=== PATIENT | female | born 1965 | race Caucasian/White ===

== ENCOUNTER 2017-08-20 07:38 | Emergency (ER) | payer MEDICARE, BC ==
[2017-08-20] MEDS ORDERED: Ondansetron 4 MG Tab.DIS PO ONE (08:12)
[2017-08-20] MEDS ORDERED: Acetaminophen/HYDROcodone 325-5 MG Tab PO ONE (08:22)
--- NOTE | 2017-08-20 08:22 | EDM.PDOC ---
ED HPI GENERAL MEDICAL PROBLEM - General Chief Complaint: Gastrointestinal Problem Stated Complaint: ABD PAIN/VOMITING Time Seen by Provider: 08/20/17 08:10 Source of Information: Reports: Patient, Old Records, RN History Limitations: Reports: No Limitations - History of Present Illness INITIAL COMMENTS - FREE TEXT/NARRATIVE: 51 yo female with MS presents with diarrhea mostly, but also some mild nausea and a couple episodes of vomiting over the past several days. No known exposures. Is on cephalexin daily. No fever. No bloody stools or emesis. Lives alone and is getting by with the help of some friends. Has a pHx also of C.diff. Fell off the toilet before the onset of her current sx's and injured her lower left, anterior ribs. Onset: Gradual Onset Date: 08/16/17 Duration: Day(s):, Constant Location: Reports: Abdomen Quality: Reports: Other (crampy) Severity: Moderate Improves with: Reports: None Worsens with: Reports: Eating Context: Reports: Other (uncertain) Associated Symptoms: Reports: Nausea/Vomiting. 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) left;abd Pain Score (Numeric/FACES): 8 - Related Data Allergies Allergy/AdvReac Type Severity Reaction Status Date / Time Penicillins Allergy Severe Anaphylactic Verified 08/20/17 09:09 Shock diphenhydramine AdvReac Anxiety Verified 08/20/17 07:53 [From Benadryl] Home Meds: Home Meds DULoxetine [Cymbalta] 120 tab PO DAILY 03/01/14 [History] Acetaminophen [Tylenol Extra Strength] 2 tab PO Q6H PRN 01/25/15 [History] Baclofen 20 tab PO BID 01/25/15 [History] Calcium Carbonate 1,000 mg PO DAILY 01/25/15 [History] Cholecalciferol (Vitamin D3) [Vitamin D3] 5,000 units PO DAILY 01/25/15 [History ] [place]-3 Fatty Acids/Fish Oil [Hm Fish Oil 1,200 mg Softgel] 1 cap PO DAILY 01/25 [History] Pregabalin [Lyrica] 200 mg PO BID 01/25/15 [History] Alendronate [Fosamax] 70 mg PO Q7D@0600 03/24/17 [History] Biotin 300 mcg PO DAILY 03/24/17 [History] Brexpiprazole [Rexulti] 1 mg PO DAILY 03/24/17 [History] Fluticasone Propionate [Flonase] 2 spray NS DAILY 03/24/17 [History] Ibuprofen 600 mg PO Q6H PRN 03/24/17 [History] Ipratropium [Atrovent 0.03% Nasal [place]] 2 spray MOUSTAPHA BID 03/24/17 [History] Ketorolac [Toradol] 10 mg PO Q6H PRN 03/24/17 [History] Lisdexamfetamine [Vyvanse] 70 mg PO DAILY 03/24/17 [History] Loratadine [Claritin] 10 mg PO DAILY 03/24/17 [History] Phenazopyridine HCl [Pyridium] 200 mg PO TID PRN 03/24/17 [History] QUEtiapine Fumarate [Seroquel] 0.5 - 2 tab PO BEDTIME PRN 03/24/17 [History] Cephalexin [Cephalexin] 500 mg PO ASDIRECTED 08/20/17 [History] Estradiol [Estradiol] 0.5 mg PO DAILY 08/20/17 [History] Hydrocodone/Acetaminophen [Vicodin 5-300 mg Tablet] 1 each PO Q4H PRN #20 tablet 08/20/17 [Rx] [place] Carbonate [[place] Carbonate] 150 mg PO BEDTIME 08/20/17 [History] Nortriptyline 25 mg PO BEDTIME 08/20/17 [History] Ondansetron [Zofran ODT] 4 mg PO Q6H PRN #7 tab.dis 08/20/17 [Rx] Past Medical History HEENT History: Reports: Impaired Vision Cardiovascular History: Reports: None Respiratory History: Reports: None Gastrointestinal History: Reports: None Genitourinary History: Reports: Neurogenic Bladder, Urinary Incontinence 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: Dysfunctional Uterine Bleeding Musculoskeletal History: Reports: Back Pain, Chronic, Fracture, Other (See Below ) Other Musculoskeletal History: MS, herniated disc Neurological History: Reports: MS Psychiatric History: Reports: Addiction, Depression, Psych Hospitalization(s) Endocrine/Metabolic History: Reports: None Hematologic History: Reports: None Immunologic History: Reports: None Oncologic (Cancer) History: Reports: None Other Dermatologic History: skin graft - Infectious Disease History Infectious Disease History: Reports: C-Difficile, Chicken Pox - Past Surgical History Head Surgeries/Procedures: Reports: None Cardiovascular Surgical History: Reports: None GI Surgical History: Reports: Other (See Below) Endocrine Surgical History: Reports: None Musculoskeletal Surgical History: Reports: Arthroscopic Knee Oncologic Surgical History: Reports: None Social & Family History - Family History Family Medical History: Noncontributory - Tobacco Use Smoking Status *Q: Never Smoker Second Hand Smoke Exposure: No - Caffeine Use Caffeine Use: Reports: Coffee - Alcohol Use Days Per Week of Alcohol Use: 0 - Recreational Drug Use Recreational Drug Use: No ED ROS GENERAL - Review of Systems Review Of Systems: See Below Constitutional: Reports: No Symptoms HEENT: Reports: No Symptoms Respiratory: Reports: Other (Rib pain with breathing, coughing, or changing position.) Cardiovascular: Reports: No Symptoms Endocrine: Reports: No Symptoms GI/Abdominal: Reports: Abdominal Pain (cramping), Diarrhea, Decreased Appetite, Nausea, Vomiting. Denies: Black Stool, Bloody Stool, Constipation, Flatus, Hematemesis, Hematochezia, Melena : Reports: No Symptoms Musculoskeletal: Reports: Other (Rib pain L ant/lower ribs) Skin: Reports: No Symptoms Neurological: Reports: Other (Has MS) Psychiatric: Reports: No Symptoms ED EXAM, GI/ABD - Physical Exam Exam: See Below Exam Limited By: No Limitations General Appearance: Alert, WD/WN, No Apparent Distress Eyes: Bilateral: Normal Appearance Ears: Normal External Exam, Normal Canal, Hearing Grossly Normal, Normal TMs Nose: Normal Inspection, Normal Mucosa, No Blood Throat/Mouth: Normal Inspection, Normal Lips, Normal Oropharynx, Normal Voice, No Airway Compromise Head: Atraumatic, Normocephalic Neck: Normal Inspection, Supple, Non-Tender Respiratory/Chest: No Respiratory Distress, Lungs Clear, Normal Breath Sounds, No Accessory Muscle Use, Other (Rib tenderness under the L breast, no crepitus) Cardiovascular: Regular Rate, Rhythm, No Edema GI/Abdominal Exam: Soft, Non-Tender, No Distention, Abnormal Bowel Sounds ( increased) Back Exam: Normal Inspection. No: CVA Tenderness (R), CVA Tenderness (L) Extremities: Normal Inspection, Normal Range of Motion, Non-Tender, No Pedal Edema Neurological: Alert, Oriented, CN II-XII Intact, Normal Cognition Psychiatric: Normal Affect, Normal Mood Skin Exam: Warm, Dry, Intact, Normal Color, No Rash Lymphatic: No Adenopathy Course - Vital Signs Last Recorded V/S: Last Vital Signs Temp 36 C 08/20/17 08:05 Pulse 70 08/20/17 09:44 Resp 16 08/20/17 09:44 BP 121/52 L 08/20/17 09:44 Pulse Ox 99 08/20/17 09:44 Orthostatic Blood Pressure [ 104/81 Standing] Orthostatic Blood Pressure [ 112/60 Sitting] Orthostatic Blood Pressure [ 118/61 Supine] - Orders/Labs/Meds Orders: Active Orders 24 hr Category Date Time Status Orthostatic Vital Signs [RC] ASDIRECTED Care 08/20/17 08:12 Active Magnesium Sulfate/Water [Magnesium Sulfate 2 GM in Med 08/20/17 09:17 Active Water 50 ML] 2 gm Premix Bag 1 bag IV ONETIME NS + KCl 20mEq/L [Normal Saline with 20 mEq KCl] 1,000 Med 08/20/17 09:00 Active ml IV ASDIRECTED Medication Orders Potassium Chloride/Sodium Chloride (Normal Saline With 20 Meq Kcl) 1,000 mls @ 1,000 mls/hr IV ASDIRECTED TORSTEN Last Admin: 08/20/17 09:13 Dose: 1,000 mls/hr Magnesium Sulfate 2 gm/ Premix 50 mls @ 12.5 mls/hr IV ONETIME ONE Stop: 08/20/17 13:16 Last Admin: 08/20/17 09:35 Dose: 12.5 mls/hr Labs: Laboratory Tests 08/20/17 08/20/17 Range/Units 08:24 08:54 Sodium 141 (140-148) mmol/L Potassium 3.3 L (3.6-5.2) mmol/L Chloride 105 (100-108) mmol/L Carbon Dioxide 26 (21-32) mmol/L Anion Gap 13.3 (5.0-14.0) mmol/L BUN 20 H (7-18) mg/dL Creatinine 1.2 H (0.6-1.0) mg/dL Est Cr Clr Drug Dosing 53.94 mL/min Estimated GFR (MDRD) 47 L (>60) Glucose 98 (74-106) mg/dL Calcium 9.2 (8.5-10.1) mg/dL Magnesium 1.4 L (1.8-2.4) mg/dL Meds: Medications Generic Name Dose Route Start Last Admin Trade Name Freq PRN Reason Stop Dose Admin Potassium Chloride/Sodium Chloride 1,000 mls @ 1,000 mls/hr 08/20/17 09:00 09:13 Normal Saline With 20 Meq Kcl IV 1,000 mls/hr ASDIRECTED TORSTEN Administration Magnesium Sulfate 2 gm/ Premix 50 mls @ 12.5 mls/hr 08/20/17 09:17 08/20/17 09:35 IV 08/20/17 13:16 12.5 mls/hr ONETIME ONE Administration Discontinued Medications Generic Name Dose Route Start Last Admin Trade Name Misbahq PRN Reason Stop Dose Admin Hydrocodone Bitart/Acetaminophen 1 tab 08/20/17 08:22 08/20/17 08:34 [place] 325-5 Mg PO 08/20/17 08:23 1 tab ONETIME ONE Administration Diphenoxylate HCl/Atropine 2 tab 08/20/17 09:34 08/20/17 09:43 [place] 0.025-2.5 Mg PO 08/20/17 09:35 2 tab ONETIME ONE Administration Ondansetron HCl 4 mg 08/20/17 08:12 08/20/17 08:34 Zofran Odt PO 08/20/17 08:13 4 mg ONETIME ONE Administration Potassium Chloride 40 meq 08/20/17 08:55 08/20/17 09:13 Klor-Con M20 PO 08/20/17 08:56 40 meq ONETIME ONE Administration Departure - Departure Time of Disposition: 11:45 Disposition: Home, Self-Care 01 Condition: Good Clinical Impression: Rib pain on left side, Nausea vomiting and diarrhea, Hypokalemia, Hypomagnesemia - Discharge Information Prescriptions: Hydrocodone/Acetaminophen [Vicodin 5-300 mg Tablet] 1 each PO Q4H PRN #20 tablet PRN Reason: Pain Ondansetron [Zofran ODT] 4 mg PO Q6H PRN #7 tab.dis PRN Reason: Nausea Referrals: John Kerr MD [Primary Care Provider] - Forms: ED Department Discharge Additional Instructions: Take Zofran every 6-8 hrs as needed for nausea. Take loperamide per package instructions as needed for diarrhea control. Follow a BRAT diet and clear liquids, ezequiel bananas as they are a good source of both potassium and magnesium. Recheck with your provider if not improving, return here if your provider cannot see you. Use [place] as needed for rib pain that is not controlled by acetaminophen alone. If you take the [place] it must substitute for acetaminophen, don't take both concurrently. - My Orders Last 24 Hours: My Active Orders 08/20/17 08:12 Orthostatic Vital Signs [RC] ASDIRECTED 08/20/17 09:00 NS + KCl 20mEq/L [Normal Saline with 20 mEq KCl] 1,000 ml IV ASDIRECTED 08/20/17 09:17 Magnesium Sulfate/Water [Magnesium Sulfate 2 GM in Water 50 ML] 2 gm Premix Bag 1 bag IV ONETIME - Assessment/Plan Last 24 Hours: My Active Orders 08/20/17 08:12 Orthostatic Vital Signs [RC] ASDIRECTED 08/20/17 09:00 NS + KCl 20mEq/L [Normal Saline with 20 mEq KCl] 1,000 ml IV ASDIRECTED 08/20/17 09:17 Magnesium Sulfate/Water [Magnesium Sulfate 2 GM in Water 50 ML] 2 gm Premix Bag 1 bag IV ONETIME
[2017-08-20] MEDS ORDERED: Potassium Chloride 20 MEQ Tab.ER PO ONE (08:55)
[2017-08-20] MEDS ORDERED: NS + KCl 20mEq/L 1,000 ML IV SCH (09:00)
[2017-08-20] MEDS ORDERED: Magnesium Sulfate/Water 2 GM in Premix Bag 1 BAG IV ONE (09:17)
[2017-08-20] MEDS ORDERED: Atropine/Diphenoxylate 0.025-2.5 MG Tab PO ONE (09:34)
[2017-08-20 09:44] VITALS: BP 121/52
== END 2017-08-20 11:33 | disposition home or self-care (01) ==
LOC: JP.ED 07:38
DX: E83.42 Hypomagnesemia (principal); E87.6 Hypokalemia; R07.81 Pleurodynia; Z88.0 Allergy status to penicillin; Z88.8 Allergy status to other drugs, medicaments and biological substances; Z79.899 Other long term (current) drug therapy
CPT/HCPCS: 36415; 80048; 83735; 87493; 96365; 96366; 99284; A9270; J3475; J3480

== ENCOUNTER 2017-08-21 16:18 | Observation (INO) | payer MEDICARE, BC ==
[2017-08-21] MEDS ORDERED: Sodium Chloride 0.9% 10 ML Syringe FLUSH PRN ×2 (17:04→20:39)
--- NOTE | 2017-08-21 17:04 | EDM.PDOC ---
ED HPI GENERAL MEDICAL PROBLEM - General Chief Complaint: Gastrointestinal Problem Stated Complaint: LIGHTHEADED/DIARRHEA SINCE THURSDAY Time Seen by Provider: 08/21/17 16:45 Source of Information: Reports: Patient, Family History Limitations: Reports: No Limitations - History of Present Illness INITIAL COMMENTS - FREE TEXT/NARRATIVE: Yady presents to the emergency room today with complaints of dizziness, continued diarrhea and generalized weakness. She reports she has had diarrhea with worsening since this past Thursday. She was in the emergency room yesterday , was given IV fluids, IV potassium and IV magnesium as well as ondansetron. She reports she has been drinking water, gatorade, tea and popsicles. Yady states anything she eats or drinks goes right through her. She states she feels dizzy with all activity today. She reports taking medication as directed. She denies nausea, fever and chills. Left Upper Abdominal Pain Score (Numeric/FACES): 6 - Related Data Allergies Allergy/AdvReac Type Severity Reaction Status Date / Time Penicillins Allergy Severe Anaphylactic Verified 08/20/17 09:09 Shock diphenhydramine AdvReac Anxiety Verified 08/20/17 07:53 [From Benadryl] Home Meds: Home Meds DULoxetine [Cymbalta] 120 tab PO DAILY 03/01/14 [History] Acetaminophen [Tylenol Extra Strength] 2 tab PO Q6H PRN 01/25/15 [History] Baclofen 20 tab PO BID 01/25/15 [History] Calcium Carbonate 1,000 mg PO DAILY 01/25/15 [History] Cholecalciferol (Vitamin D3) [Vitamin D3] 5,000 units PO DAILY 01/25/15 [History ] [place]-3 Fatty Acids/Fish Oil [Hm Fish Oil 1,200 mg Softgel] 1 cap PO DAILY 01/25 [History] Pregabalin [Lyrica] 200 mg PO BID 01/25/15 [History] Alendronate [Fosamax] 70 mg PO Q7D@0600 03/24/17 [History] Biotin 300 mcg PO DAILY 03/24/17 [History] Brexpiprazole [Rexulti] 1 mg PO DAILY 03/24/17 [History] Fluticasone Propionate [Flonase] 2 spray NS DAILY 03/24/17 [History] Ibuprofen 600 mg PO Q6H PRN 03/24/17 [History] Ipratropium [Atrovent 0.03% Nasal [place]] 2 spray MOUSTAPHA BID 03/24/17 [History] Ketorolac [Toradol] 10 mg PO Q6H PRN 03/24/17 [History] Lisdexamfetamine [Vyvanse] 70 mg PO DAILY 03/24/17 [History] Loratadine [Claritin] 10 mg PO DAILY 03/24/17 [History] Phenazopyridine HCl [Pyridium] 200 mg PO TID PRN 03/24/17 [History] QUEtiapine Fumarate [Seroquel] 0.5 - 2 tab PO BEDTIME PRN 03/24/17 [History] Cephalexin [Cephalexin] 500 mg PO ASDIRECTED 08/20/17 [History] Estradiol [Estradiol] 0.5 mg PO DAILY 08/20/17 [History] Hydrocodone/Acetaminophen [Vicodin 5-300 mg Tablet] 1 each PO Q4H PRN #20 tablet 08/20/17 [Rx] [place] Carbonate [[place] Carbonate] 150 mg PO BEDTIME 08/20/17 [History] Nortriptyline 25 mg PO BEDTIME 08/20/17 [History] Ondansetron [Zofran ODT] 4 mg PO Q6H PRN #7 tab.dis 08/20/17 [Rx] Past Medical History HEENT History: Reports: Impaired Vision Cardiovascular History: Reports: None Respiratory History: Reports: None Gastrointestinal History: Reports: None Genitourinary History: Reports: Neurogenic Bladder, Urinary Incontinence 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: Dysfunctional 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 Bleeding Musculoskeletal History: Reports: Back Pain, Chronic, Fracture, Other (See Below ) Other Musculoskeletal History: MS, herniated disc Neurological History: Reports: MS Psychiatric History: Reports: Addiction, Depression, Psych Hospitalization(s) Endocrine/Metabolic History: Reports: None Hematologic History: Reports: None Immunologic History: Reports: None Oncologic (Cancer) History: Reports: None Other Dermatologic History: skin graft - Infectious Disease History Infectious Disease History: Reports: Chicken Pox - Past Surgical History Head Surgeries/Procedures: Reports: None Cardiovascular Surgical History: Reports: None GI Surgical History: Reports: Other (See Below) Endocrine Surgical History: Reports: None Musculoskeletal Surgical History: Reports: Arthroscopic Knee Oncologic Surgical History: Reports: None Social & Family History - Family History Family Medical History: Noncontributory - Tobacco Use Smoking Status *Q: Never Smoker Second Hand Smoke Exposure: No - Caffeine Use Caffeine Use: Reports: Coffee - Alcohol Use Days Per Week of Alcohol Use: 0 - Recreational Drug Use Recreational Drug Use: No ED ROS GENERAL - Review of Systems Review Of Systems: See Below Constitutional: Reports: Malaise, Weakness. Denies: Fever, Chills HEENT: Reports: No Symptoms Respiratory: Denies: Shortness of Breath, Cough, Sputum, Hemoptysis Cardiovascular: Reports: Lightheadedness. Denies: Chest Pain, Blood Pressure Problem, Dyspnea on Exertion, Edema, Orthopnea, Palpitations, PND, Syncope Endocrine: Reports: No Symptoms GI/Abdominal: Reports: Diarrhea, Decreased Appetite. Denies: Abdominal Pain, Black Stool, Bloody Stool, Constipation, Difficulty Swallowing, Distension, Hematemesis, Nausea, Vomiting : Reports: No Symptoms Musculoskeletal: Reports: Other (Pain to left rib cage, rib fracture. ) Skin: Reports: Pallor, Dryness. Denies: Diaphoresis, Bruising, Pruritis, Rash, Erythema Neurological: Reports: Dizziness, Pre-Existing Deficit, Other (Patient suffers from MS). Denies: Confusion, Headache, Numbness, Syncope, Tingling, Weakness Psychiatric: Reports: No Symptoms Hematologic/Lymphatic: Reports: No Symptoms Immunologic: Reports: No Symptoms ED EXAM, GI/ABD - Physical Exam Exam: See Below Text/Narrative:: Yady presents today with complaints of nausea, dehydration, unsteadiness due to enteritis. She also has a history of MS and left sided weakness. Exam Limited By: No Limitations General Appearance: Alert, Moderate Distress Eyes: Bilateral: Normal Appearance, EOMI Ears: Normal External Exam, Normal Canal, Hearing Grossly Normal, Normal TMs Nose: Normal Inspection, Normal Mucosa, No Blood Throat/Mouth: Normal Inspection, Normal Lips, Normal Gums, Normal Voice, No Airway Compromise, Other (dry mucus membranes) Head: Atraumatic, Normocephalic Neck: Normal Inspection, Supple, Non-Tender, Full Range of Motion. No: Lymphadenopathy (R), Lymphadenopathy (L) Respiratory/Chest: No Respiratory Distress, Lungs Clear, Normal Breath Sounds, No Accessory Muscle Use, Other (Tenderness to left ribs due to rib fracture secondary to fall earlier this week. ) Cardiovascular: Normal Peripheral Pulses, Regular Rate, Rhythm, No Edema, No Murmur GI/Abdominal Exam: Soft, Distended, Other (Hyperactive bowel sounds, generalized tenderness. ). No: Guarding, Rigid, Rebound Back Exam: Normal Inspection, Full Range of Motion. No: CVA Tenderness (R), CVA Tenderness (L) Extremities: Normal Inspection, Normal Range of Motion, Non-Tender, No Pedal Edema, Normal Capillary Refill Neurological: Alert, Oriented, CN II-XII Intact, Normal Cognition, No Motor/ Sensory Deficits Psychiatric: Normal Affect, Normal Mood Skin Exam: Warm, Dry, Intact, No Rash, Pallor Lymphatic: No Adenopathy Course - Vital Signs Last Recorded V/S: Last Vital Signs Temp 36.3 C 08/21/17 16:37 Pulse 95 08/21/17 16:37 Resp 18 08/21/17 16:37 BP 125/56 L 08/21/17 16:37 Pulse Ox 97 08/21/17 16:37 - Orders/Labs/Meds Orders: Medication Orders Acetaminophen (Tylenol) 650 mg PO Q4H PRN PRN Reason: Pain (Mild 1-3)/fever Baclofen (Lioresal) mg PO BID [facility] Non-Formulary Medication (Biotin [Biotin]) 300 mcg PO DAILY [facility] Non-Formulary Medication (Brexpiprazole [Rexulti]) 1 mg PO DAILY [facility] Labs: Laboratory Tests 08/21/17 08/21/17 08/21/17 Range/Units 17:18 17:18 17:18 WBC 6.6 (4.5-11.0) K/uL RBC 4.09 (3.30-5.50) M/uL Hgb 12.5 (12.0-15.0) g/dL Hct 37.8 (36.0-48.0) % MCV 92 (80-98) fL MCH 31 (27-31) pg MCHC 33 (32-36) % Plt Count 337 (150-400) K/uL Neut % (Auto) 76 H (36-66) % Lymph % (Auto) 14 L (24-44) % [place] % (Auto) 9 H (2-6) % Eos % (Auto) 1 L (2-4) % Baso % (Auto) 1 (0-1) % Sodium 141 (140-148) mmol/L Potassium 3.6 (3.6-5.2) mmol/L Chloride 108 (100-108) mmol/L Carbon Dioxide 25 (21-32) mmol/L Anion Gap 8.2 (5.0-14.0) mmol/L BUN 10 (7-18) mg/dL Creatinine 1.0 (0.6-1.0) mg/dL Est Cr Clr Drug Dosing 64.72 mL/min Estimated GFR (MDRD) 58 L (>60) Glucose 101 (74-106) mg/dL Calcium 8.4 L (8.5-10.1) mg/dL Magnesium 2.0 D (1.8-2.4) mg/dL Total Bilirubin 0.4 D (0.2-1.0) mg/dL AST 17 (15-37) U/L ALT 24 (12-78) U/L Alkaline Phosphatase 68 (46-116) U/L Total Protein 6.1 L (6.4-8.2) g/dL Albumin 3.1 L (3.4-5.0) g/dL Globulin 3.0 (2.3-3.5) g/dL Albumin/Globulin Ratio 1.0 L (1.2-2.2) Vitamin B12 3083 H (193-986) pg/ml Urine Color Urine Appearance Urine pH (4.5-8.0) Ur Specific [place] (1.008-1.030) Urine Protein (NEGATIVE) mg/dL Urine Glucose (UA) (NEGATIVE) mg/dL Urine Ketones (NEGATIVE) mg/dL Urine Occult Blood (NEGATIVE) Urine Nitrite (NEGATIVE) Urine Bilirubin (NEGATIVE) Urine Urobilinogen (NORMAL) mg/dL Ur Leukocyte Esterase (NEGATIVE) Urine RBC (0-5) Urine WBC (0-5) Ur Epithelial Cells Amorphous Sediment Urine Bacteria Urine Mucus 08/21/17 Range/Units 19:23 WBC (4.5-11.0) K/uL RBC (3.30-5.50) M/uL Hgb (12.0-15.0) g/dL Hct (36.0-48.0) % MCV (80-98) fL MCH (27-31) pg MCHC (32-36) % Plt Count (150-400) K/uL Neut % (Auto) (36-66) % Lymph % (Auto) (24-44) % [place] % (Auto) (2-6) % Eos % (Auto) (2-4) % Baso % (Auto) (0-1) % Sodium (140-148) mmol/L Potassium (3.6-5.2) mmol/L Chloride (100-108) mmol/L Carbon Dioxide (21-32) mmol/L Anion Gap (5.0-14.0) mmol/L BUN (7-18) mg/dL Creatinine (0.6-1.0) mg/dL Est Cr Clr Drug Dosing mL/min Estimated GFR (MDRD) (>60) Glucose (74-106) mg/dL Calcium (8.5-10.1) mg/dL Magnesium (1.8-2.4) mg/dL Total Bilirubin (0.2-1.0) mg/dL AST (15-37) U/L ALT (12-78) U/L Alkaline Phosphatase (46-116) U/L Total Protein (6.4-8.2) g/dL Albumin (3.4-5.0) g/dL Globulin (2.3-3.5) g/dL Albumin/Globulin Ratio (1.2-2.2) Vitamin B12 (193-986) pg/ml Urine Color Yellow Urine Appearance Clear Urine pH 5.0 (4.5-8.0) Ur Specific [place] 1.015 (1.008-1.030) Urine Protein Negative (NEGATIVE) mg/dL Urine Glucose (UA) Normal (NEGATIVE) mg/dL Urine Ketones Negative (NEGATIVE) mg/dL Urine Occult Blood Moderate (NEGATIVE) Urine Nitrite Negative (NEGATIVE) Urine Bilirubin Negative (NEGATIVE) Urine Urobilinogen Normal (NORMAL) mg/dL Ur Leukocyte Esterase Negative (NEGATIVE) Urine RBC 5-10 H (0-5) Urine WBC Not seen (0-5) Ur Epithelial Cells Few Amorphous Sediment Not seen Urine Bacteria Few Urine Mucus Not seen Meds: Medications Generic Name Dose Route Start Last Admin Trade Name Freq PRN Reason Stop Dose Admin Acetaminophen 650 mg 08/21/17 20:39 Tylenol PO Q4H PRN Pain (Mild 1-3)/fever Baclofen mg 08/21/17 21:00 Lioresal PO BID TORSTEN Non-Formulary Medication 300 mcg 08/22/17 09:00 Biotin [Biotin] PO DAILY TORST[facility] Non-Formulary Medication 1 mg 08/22/17 09:00 Brexpiprazole [Rexulti] PO DAILY TORSTEN Discontinued Medications Generic Name Dose Route Start Last Admin Trade Name Maria Teresa PRN Reason Stop Dose Admin Hydromorphone HCl 0.5 mg 08/21/17 19:44 08/21/17 19:53 Dilaudid IVPUSH 08/21/17 19:45 0.5 mg ONETIME ONE Administration Lactated Ringer's 1,000 mls @ 1,000 mls/hr 08/21/17 17:15 08/21/17 17:43 Ringers, Lactated IV 1,000 mls/hr ASDIRECTED TORSTEN Administration Lactated Ringer's 1,000 mls @ 999 mls/hr 08/21/17 19:07 08/21/17 19:09 Ringers, Lactated IV 08/21/17 20:07 999 mls/hr BOLUS ONE Administration Sodium Chloride 10 ml 08/21/17 17:04 08/21/17 17:43 Saline Flush FLUSH 10 ml ASDIRECTED PRN Administration Keep Vein Open - Re-Assessments/Exams Free Text/Narrative Re-Assessment/Exam: 08/21/17 18:57 Dr. Lee notified of patient status, lab work, history of MS, fall risk. Patient will be admitted. Dilaudid IV for rib pain. Departure - Departure Time of Disposition: 18:58 Disposition: Admitted As Inpatient 66 Clinical Impression: Gastritis, Diarrhea - Discharge Information
[2017-08-21] MEDS ORDERED: Lactated Ringers 1,000 ML IV SCH (17:15)
[2017-08-21] MEDS ORDERED: Lactated Ringers 1,000 ML IV ONE (19:07)
[2017-08-21] MEDS ORDERED: HYDROmorphone 0.5 MG/0.5 ML Syringe IVPUSH ONE (19:44)
--- NOTE | 2017-08-21 20:00 | PCM.HP ---
H&P History of Present Illness - General Date of Service: 08/21/17 Admit Problem/Dx: Admission Diagnosis/Problem Admission Diagnosis/Problem Enteritis Source of Information: Patient, Old Records, Provider, RN Notes Reviewed History Limitations: Reports: No Limitations - History of Present Illness Initial Comments - Free Text/Narative: Ms. Chowdhury is a 51-year-old woman who is admitted to observation status through the emergency department with nausea, vomiting, diarrhea, and dehydration secondary to enteritis. She first developed symptoms approximately 4 days ago and they have been persistent since that time. She did experience a fall earlier in the week injuring her left anterior chest wall. She denies any fever , chills, sweats, or significant abdominal pain. There is been no hematemesis, melena, or hematochezia. Stool for C. difficile was obtained yesterday and is negative. She has underlying MS with left-sided weakness, this associated with her dehydration has caused difficulty with ambulation and unsteadiness. Left Upper Abdominal Pain Score (Numeric/FACES): 6 - Related Data Allergies/Adverse Reactions: Allergies Allergy/AdvReac Type Severity Reaction Status Date / Time Penicillins Allergy Severe Anaphylactic Verified 08/20/17 09:09 Shock diphenhydramine AdvReac Anxiety Verified 08/20/17 07:53 [From Benadryl] Home Medications: Home Meds DULoxetine [Cymbalta] 120 tab PO DAILY 03/01/14 [History] Acetaminophen [Tylenol Extra Strength] 2 tab PO Q6H PRN 01/25/15 [History] Baclofen 20 tab PO BID 01/25/15 [History] Calcium Carbonate 1,000 mg PO DAILY 01/25/15 [History] Cholecalciferol (Vitamin D3) [Vitamin D3] 5,000 units PO DAILY 01/25/15 [History ] [place]-3 Fatty Acids/Fish Oil [Hm Fish Oil 1,200 mg Softgel] 1 cap PO DAILY 01/25 [History] Pregabalin [Lyrica] 200 mg PO BID 01/25/15 [History] Alendronate [Fosamax] 70 mg PO Q7D@0600 03/24/17 [History] Biotin 300 mcg PO DAILY 03/24/17 [History] Brexpiprazole [Rexulti] 1 mg PO DAILY 03/24/17 [History] Fluticasone Propionate [Flonase] 2 spray NS DAILY 03/24/17 [History] Ibuprofen 600 mg PO Q6H PRN 03/24/17 [History] Ipratropium [Atrovent 0.03% Nasal [place]] 2 spray MOUSTAPHA BID 03/24/17 [History] Ketorolac [Toradol] 10 mg PO Q6H PRN 03/24/17 [History] Lisdexamfetamine [Vyvanse] 70 mg PO DAILY 03/24/17 [History] Loratadine [Claritin] 10 mg PO DAILY 03/24/17 [History] Phenazopyridine HCl [Pyridium] 200 mg PO TID PRN 03/24/17 [History] QUEtiapine Fumarate [Seroquel] 0.5 - 2 tab PO BEDTIME PRN 03/24/17 [History] Cephalexin [Cephalexin] 500 mg PO ASDIRECTED 08/20/17 [History] Estradiol [Estradiol] 0.5 mg PO DAILY 08/20/17 [History] Hydrocodone/Acetaminophen [Vicodin 5-300 mg Tablet] 1 each PO Q4H PRN #20 tablet 08/20/17 [Rx] [place] Carbonate [[place] Carbonate] 150 mg PO BEDTIME 08/20/17 [History] Nortriptyline 25 mg PO BEDTIME 08/20/17 [History] Ondansetron [Zofran ODT] 4 mg PO Q6H PRN #7 tab.dis 08/20/17 [Rx] Past Medical History HEENT History: Reports: Impaired Vision Cardiovascular History: Reports: None Respiratory History: Reports: None Gastrointestinal History: Reports: None Genitourinary History: Reports: Neurogenic Bladder, Urinary Incontinence [employer] History: Reports: Dysfunctional Uterine Bleeding Musculoskeletal History: Reports: Back Pain, Chronic, Fracture, Other (See Below ) Other Musculoskeletal History: MS, herniated disc Neurological History: Reports: MS Psychiatric History: Reports: Addiction, Depression, Psych Hospitalization(s) Endocrine/Metabolic History: Reports: None Hematologic History: Reports: None Immunologic History: Reports: None Oncologic (Cancer) History: Reports: None Other Dermatologic History: skin graft - Infectious Disease History Infectious Disease History: Reports: Chicken Pox - Past Surgical History Head Surgeries/Procedures: Reports: None Cardiovascular Surgical History: Reports: None GI Surgical History: Reports: Other (See Below) Endocrine Surgical History: Reports: None Musculoskeletal Surgical History: Reports: Arthroscopic Knee Oncologic Surgical History: Reports: None Social & Family History - Family History Family Medical History: Noncontributory - Tobacco Use Smoking Status *Q: Never Smoker Second Hand Smoke Exposure: No - Caffeine Use Caffeine Use: Reports: Coffee - Alcohol Use Days Per Week of Alcohol Use: 0 - Recreational Drug Use Recreational Drug Use: No H&P Review of Systems - Review of Systems: Review Of Systems: See Below General: Reports: Weakness, Decreased Appetite. Denies: Fever, Chills, Diaphoresis HEENT: Reports: No Symptoms Pulmonary: Reports: No Symptoms Cardiovascular: Reports: No Symptoms Gastrointestinal: Reports: Anorexia, Diarrhea, Nausea, Vomiting. Denies: Abdominal Pain, Black Stool, Bloody Stool, Constipation, Difficulty Swallowing, Distension Genitourinary: Reports: No Symptoms Musculoskeletal: Reports: Other (Chest wall pain) Skin: Reports: No Symptoms Psychiatric: Reports: No Symptoms Neurological: Reports: Other (Left-sided weakness secondary to MS) Hematologic/Lymphatic: Reports: No Symptoms Immunologic: Reports: Pollen Allergy Exam - Exam Exam: See Below - Vital Signs Vital Signs: Last Vital Signs Temp 97.3 F 08/21/17 16:37 Pulse 95 08/21/17 16:37 Resp 18 08/21/17 16:37 BP 125/56 L 08/21/17 16:37 Pulse Ox 97 08/21/17 16:37 Weight: 156 lb 8.451 oz - Exam General: Alert, Oriented, Cooperative, Moderate Distress HEENT: Conjunctiva Clear, Hearing Intact, Normal Nasal Septum, Posterior Pharynx Clear, Pupils Equal. No: Mucosa Moist & [place] Neck: Supple, Trachea Midline, +2 Carotid Pulse wo Bruit Lungs: Clear to Auscultation, Normal Respiratory Effort Cardiovascular: Regular Rate, Regular Rhythm, Normal S1, Normal S2 GI/Abdominal Exam: Soft, Non-Tender, No Organomegaly, No Distention Back Exam: Normal Inspection, Full Range of Motion Extremities: Normal Inspection, Non-Tender, No Pedal Edema Skin: Warm, Dry, Intact Neurological: Cranial Nerves Intact, Normal Speech, Sensation Intact, Focal Deficit, Other (Left-sided weakness). No: Strength Equal Bilateral, Normal Tone Neuro Extensive - Mental Status: Alert, Oriented x3, Normal Mood/Affect, Normal Cognition, Memory Intact - Patient Data Lab Results Last 24 hrs: Laboratory Results - last 24 hr 08/21/17 08/21/17 08/21/17 Range/Units 17:18 17:18 17:18 WBC 6.6 (4.5-11.0) K/uL RBC 4.09 (3.30-5.50) M/uL Hgb 12.5 (12.0-15.0) g/dL Hct 37.8 (36.0-48.0) % MCV 92 (80-98) fL MCH 31 (27-31) pg MCHC 33 (32-36) % Plt Count 337 (150-400) K/uL Neut % (Auto) 76 H (36-66) % Lymph % (Auto) 14 L (24-44) % [place] % (Auto) 9 H (2-6) % Eos % (Auto) 1 L (2-4) % Baso % (Auto) 1 (0-1) % Sodium 141 (140-148) mmol/L Potassium 3.6 (3.6-5.2) mmol/L Chloride 108 (100-108) mmol/L Carbon Dioxide 25 (21-32) mmol/L Anion Gap 8.2 (5.0-14.0) mmol/L BUN 10 (7-18) mg/dL Creatinine 1.0 (0.6-1.0) mg/dL Est Cr Clr Drug Dosing 64.72 mL/min Estimated GFR (MDRD) 58 L (>60) Glucose 101 (74-106) mg/dL Calcium 8.4 L (8.5-10.1) mg/dL Magnesium 2.0 D (1.8-2.4) mg/dL Total Bilirubin 0.4 D (0.2-1.0) mg/dL AST 17 (15-37) U/L ALT 24 (12-78) U/L Alkaline Phosphatase 68 (46-116) U/L Total Protein 6.1 L (6.4-8.2) g/dL Albumin 3.1 L (3.4-5.0) g/dL Globulin 3.0 (2.3-3.5) g/dL Albumin/Globulin Ratio 1.0 L (1.2-2.2) Vitamin B12 3083 H (193-986) pg/ml Urine Color Urine Appearance Urine pH (4.5-8.0) Ur Specific [place] (1.008-1.030) Urine Protein (NEGATIVE) mg/dL Urine Glucose (UA) (NEGATIVE) mg/dL Urine Ketones (NEGATIVE) mg/dL Urine Occult Blood (NEGATIVE) Urine Nitrite (NEGATIVE) Urine Bilirubin (NEGATIVE) Urine Urobilinogen (NORMAL) mg/dL Ur Leukocyte Esterase (NEGATIVE) Urine RBC (0-5) Urine WBC (0-5) Ur Epithelial Cells Amorphous Sediment Urine Bacteria Urine Mucus 08/21/17 Range/Units 19:23 WBC (4.5-11.0) K/uL RBC (3.30-5.50) M/uL Hgb (12.0-15.0) g/dL Hct (36.0-48.0) % MCV (80-98) fL MCH (27-31) pg MCHC (32-36) % Plt Count (150-400) K/uL Neut % (Auto) (36-66) % Lymph % (Auto) (24-44) % [place] % (Auto) (2-6) % Eos % (Auto) (2-4) % Baso % (Auto) (0-1) % Sodium (140-148) mmol/L Potassium (3.6-5.2) mmol/L Chloride (100-108) mmol/L Carbon Dioxide (21-32) mmol/L Anion Gap (5.0-14.0) mmol/L BUN (7-18) mg/dL Creatinine (0.6-1.0) mg/dL Est Cr Clr Drug Dosing mL/min Estimated GFR (MDRD) (>60) Glucose (74-106) mg/dL Calcium (8.5-10.1) mg/dL Magnesium (1.8-2.4) mg/dL Total Bilirubin (0.2-1.0) mg/dL AST (15-37) U/L ALT (12-78) U/L Alkaline Phosphatase (46-116) U/L Total Protein (6.4-8.2) g/dL Albumin (3.4-5.0) g/dL Globulin (2.3-3.5) g/dL Albumin/Globulin Ratio (1.2-2.2) Vitamin B12 (193-986) pg/ml Urine Color Yellow Urine Appearance Clear Urine pH 5.0 (4.5-8.0) Ur Specific [place] 1.015 (1.008-1.030) Urine Protein Negative (NEGATIVE) mg/dL Urine Glucose (UA) Normal (NEGATIVE) mg/dL Urine Ketones Negative (NEGATIVE) mg/dL Urine Occult Blood Moderate (NEGATIVE) Urine Nitrite Negative (NEGATIVE) Urine Bilirubin Negative (NEGATIVE) Urine Urobilinogen Normal (NORMAL) mg/dL Ur Leukocyte Esterase Negative (NEGATIVE) Urine RBC 5-10 H (0-5) Urine WBC Not seen (0-5) Ur Epithelial Cells Few Amorphous Sediment Not seen Urine Bacteria Few Urine Mucus Not seen Result Diagrams: 08/21/17 17:18 08/21/17 17:18 *Q Meaningful Use (ADM) - VTE *Q VTE Criteria *Q: - VTE Risk Assess *Q Each Risk Factor Represents 1 Point: Age 41 - 59 years, Oral Contraceptives or Hormone Replacement Therapy Total Score 1 Point Risk Factors: 2 Each Risk Factor Represents 2 Points: None Total Score 2 Point Risk Factors: 0 Each Risk Factor Represents 3 Points: None Total Score 3 Point Risk Factors: 0 Each Risk Factor Represents 5 Points: None Total Score 5 Point Risk Factors: 0 Venous Thromboembolism Risk Factor Score *Q: 2 - Stroke *Q Stroke Criteria *Q: - AMI *Q AMI Criteria *Q: Problem List Initiated/Reviewed/Updated: Yes Orders Last 24hrs: Active Orders 24 hr Category Date Time Status Patient Status Manage Transfer [TRANSFER] Routine ADT 08/21/17 19:49 Ordered Lactated Ringers [Ringers, Lactated] 1,000 ml Med 08/21/17 17:15 Active IV ASDIRECTED Lactated Ringers [Ringers, Lactated] 1,000 ml Med 08/21/17 19:07 Active IV BOLUS Sodium Chloride 0.9% [Saline Flush] Med 08/21/17 17:04 Active 10 ml FLUSH ASDIRECTED PRN Saline Lock Insert [OM.PC] Routine Oth 08/21/17 17:04 Ordered Resuscitation Status Routine Resus Stat 08/21/17 19:54 Ordered Medication Orders Lactated Ringer's (Ringers, Lactated) 1,000 mls @ 1,000 mls/hr IV ASDIRECTED TORSTEN Last Admin: 08/21/17 17:43 Dose: 1,000 mls/hr Lactated Ringer's (Ringers, Lactated) 1,000 mls @ 999 mls/hr IV BOLUS ONE Stop: 08/21/17 20:07 Last Admin: 08/21/17 19:09 Dose: 999 mls/hr Sodium Chloride (Saline Flush) 10 ml FLUSH ASDIRECTED PRN PRN Reason: Keep Vein Open Last Admin: 08/21/17 17:43 Dose: 10 ml Assessment/Plan Comment:: ASSESSMENT AND PLAN ENTERITIS-likely viral in nature, no fever, normal white count, and no abdominal pain. Symptoms present over the past 4 days and will have left her dehydrated and weak. -IV fluids for hydration -Anti-emetic therapy as needed MULTIPLE SCLEROSIS -Continue outpatient medical regimen MAINTENANCE ISSUES -DVT prophylaxis; not required -GI prophylaxis; Protonix 40 mg IV daily -Dasilva catheter; not required -Nutrition; regular diet as tolerated -Nicotine dependence; not required CODE STATUS-FULL CODE ADMISSION STATUS-this patient will be admitted to observation status, expect no more than a one night hospital stay for evaluation and management of problems as outlined above. DISPOSITION-anticipate discharge to home after the hospital stay. PRIMARY CARE PROVIDER-
[2017-08-21] MEDS ORDERED: Ondansetron 4 MG/2 ML SDV IV PRN (20:39)
[2017-08-21] MEDS ORDERED: Acetaminophen 325 MG Tab PO PRN (20:39)
[2017-08-21] MEDS ORDERED: Lactated Ringers 500 ML IV SCH (20:39)
[2017-08-21] MEDS ORDERED: Phenazopyridine 95 MG Tab PO PRN (20:39)
[2017-08-21] MEDS ORDERED: ACETAMINOPHEN PO PRN (20:39)
[2017-08-21] MEDS ORDERED: Potassium Chloride 40 MEQ in Premix Bag 1 BAG IV ONE (20:39)
[2017-08-21] MEDS ORDERED: HYDROCODONE PO PRN (20:39)
[2017-08-21] MEDS ORDERED: [UNRECOGNIZED DRUG - OTHER] PO PRN (20:39)
[2017-08-21] MEDS ORDERED: PREGABALIN 100 MG PO SCH (21:00)
[2017-08-21] MEDS ORDERED: Baclofen 10 MG Tab PO SCH (21:00)
[2017-08-21] MEDS ORDERED: Ipratropium 0.03% Nasal Spray 30 ML Bot NAS SCH (21:00)
[2017-08-21] MEDS ORDERED: NORTRIPTYLINE 25 MG PO SCH (21:00)
[2017-08-21] MEDS ORDERED: Pantoprazole 40 MG Vial IVPUSH SCH (21:00)
[2017-08-21] MEDS ORDERED: LITHIUM CARBONATE 150 MG PO SCH (21:00)
[2017-08-21] MEDS: Acetaminophen/HYDROcodone 325-5 MG Tab PO PRN (22:06)
[2017-08-21] MEDS: Baclofen 10 MG Tab **OWN MED PO SCH (22:08)
[2017-08-22] MEDS ORDERED: Lactated Ringers 1,000 ML IV SCH (00:01)
[2017-08-22] MEDS: Acetaminophen/HYDROcodone 325-5 MG Tab PO PRN (04:45)
[2017-08-22] MEDS ORDERED: PHENAZOPYRIDINE 200 MG PO PRN (08:27)
[2017-08-22] MEDS ORDERED: Magnesium Sulfate/Water 2 GM in Premix Bag 1 BAG IV ONE (09:00)
[2017-08-22] MEDS ORDERED: LISDEXAMFETAMINE 70 MG PO SCH (09:00)
[2017-08-22] MEDS ORDERED: BREXPIPRAZOLE 1 MG PO SCH (09:00)
[2017-08-22] MEDS ORDERED: PREGABALIN 100 MG PO SCH (09:00)
[2017-08-22] MEDS ORDERED: Loratadine 10 MG Tab PO SCH (09:00)
[2017-08-22] MEDS ORDERED: Fluticasone Propionate Nasal Spray 16 GM Bottle NAS SCH (09:00)
[2017-08-22] MEDS ORDERED: ESTRADIOL 0.5 MG PO SCH (09:00)
[2017-08-22] MEDS ORDERED: BIOTIN 300 MCG PO SCH (09:00)
[2017-08-22] MEDS ORDERED: DULOXETINE 60 MG PO SCH (09:00)
[2017-08-22] MEDS: Baclofen 10 MG Tab **OWN MED PO SCH (09:43)
[2017-08-22 11:17] VITALS: BP 105/52
--- NOTE | 2017-08-22 12:21 | PCM.DCSUM1 ---
Discharge Summary - Hospital Course Brief History: Ms. Chowdhury is a 51-year-old woman who was admitted through the emergency department with nausea, vomiting, diarrhea, and dehydration secondary to enteritis. - Discharge Data Discharge Date: 08/22/17 Discharge Disposition: Home, Self-Care 01 Condition: Fair - Discharge Diagnosis/Problem(s) (1) Enteritis SNOMED Code(s): 75017535 ICD Code: K52.9 - NONINFECTIVE GASTROENTERITIS AND COLITIS, UNSPECIFIED Status: Acute Current Visit: Yes (2) Rib pain on left side SNOMED Code(s): 074611649 ICD Code: R07.81 - PLEURODYNIA Status: Acute Current Visit: No (3) Nausea vomiting and diarrhea SNOMED Code(s): 5309215 ICD Code: R11.2 - NAUSEA WITH VOMITING, UNSPECIFIED; R19.7 - DIARRHEA, UNSPECIFIED Status: Acute Current Visit: No (4) Hypokalemia SNOMED Code(s): 15689519 ICD Code: E87.6 - HYPOKALEMIA Status: Acute Current Visit: No (5) Hypomagnesemia SNOMED Code(s): 070897702 ICD Code: E83.42 - HYPOMAGNESEMIA Status: Acute Current Visit: No - Patient Summary/Data Hospital Course: Ms. Chowdhury is a 51-year-old woman who was admitted to observation status through the emergency department with nausea, vomiting, diarrhea, and dehydration secondary to enteritis. She first developed symptoms approximately 4 days prior to admission and they have been persistent since that time. She did experience a fall earlier in the week injuring her left anterior chest wall. She denies any fever, chills, sweats, or significant abdominal pain. There is been no hematemesis, melena, or hematochezia. Stool for C. difficile was obtained yesterday and is negative. She has underlying MS with left-sided weakness, this associated with her dehydration has caused difficulty with ambulation and unsteadiness. She was admitted to observation status and given IV fluids for hydration as well as pain medication and antiemetic therapy. By the following morning she was feeling significantly better with no further lightheadedness or significant weakness with ambulation. She had tolerated a soft diet for breakfast and had only had 5 stools since admission. This represented a significant improvement from what she had been experiencing before. White blood cell count remained normal and she was afebrile as well as hemodynamically stable throughout her hospital stay. She will be discharged home on a soft diet and activity will be as tolerated. She can use Imodium 1 tablet every 4 hours as needed for diarrhea. Follow-up appointment will be scheduled with her primary care provider within one week. - Patient Instructions Diet: GI Soft/Low Residue/Low Fiber Activity: As Tolerated Other/Special Instructions: Please schedule follow-up appointment with primary care provider within one week. - Discharge Plan Prescriptions/Med Rec: Loperamide [Imodium] 2 mg PO Q4H PRN #30 cap PRN Reason: Diarrhea Home Medications: Home Meds DULoxetine [Cymbalta] 120 tab PO DAILY 03/01/14 [History] Acetaminophen [Tylenol Extra Strength] 2 tab PO Q6H PRN 01/25/15 [History] Baclofen 20 tab PO BID 01/25/15 [History] Calcium Carbonate 1,000 mg PO DAILY 01/25/15 [History] Cholecalciferol (Vitamin D3) [Vitamin D3] 5,000 units PO DAILY 01/25/15 [History ] [place]-3 Fatty Acids/Fish Oil [Hm Fish Oil 1,200 mg Softgel] 1 cap PO DAILY 01/25 [History] Pregabalin [Lyrica] 200 mg PO BID 01/25/15 [History] Alendronate [Fosamax] 70 mg PO Q7D@0600 03/24/17 [History] Biotin 300 mcg PO DAILY 03/24/17 [History] Brexpiprazole [Rexulti] 1 mg PO DAILY 03/24/17 [History] Fluticasone Propionate [Flonase] 2 spray NS DAILY 03/24/17 [History] Ibuprofen 600 mg PO Q6H PRN 03/24/17 [History] Ipratropium [Atrovent 0.03% Nasal [place]] 2 spray MOUSTAPHA BID 03/24/17 [History] Ketorolac [Toradol] 10 mg PO Q6H PRN 03/24/17 [History] Lisdexamfetamine [Vyvanse] 70 mg PO DAILY 03/24/17 [History] Loratadine [Claritin] 10 mg PO DAILY 03/24/17 [History] Phenazopyridine HCl [Pyridium] 200 mg PO TID PRN 03/24/17 [History] QUEtiapine Fumarate [Seroquel] 0.5 - 2 tab PO BEDTIME PRN 03/24/17 [History] Cephalexin 500 mg PO ASDIRECTED 08/20/17 [History] Estradiol 0.5 mg PO DAILY 08/20/17 [History] Hydrocodone/Acetaminophen [Vicodin 5-300 mg Tablet] 1 each PO Q4H PRN #20 tablet 08/20/17 [Rx] [place] Carbonate 150 mg PO BEDTIME 08/20/17 [History] Nortriptyline 25 mg PO BEDTIME 08/20/17 [History] Ondansetron [Zofran ODT] 4 mg PO Q6H PRN #7 tab.dis 08/20/17 [Rx] Loperamide [Imodium] 2 mg PO Q4H PRN #30 cap 08/22/17 [Rx] Referrals: John Kerr MD [Consulting Physician] - - Patient Data Vitals - Most Recent: Last Vital Signs Temp 97.8 F 08/22/17 11:14 Pulse 79 08/22/17 11:14 Resp 16 08/22/17 11:14 BP 105/52 L 08/22/17 11:14 Pulse Ox 95 08/22/17 11:14 Weight - Most Recent: 164 lb I&O - Last 24 hours: Intake & Output 08/21/17 08/22/17 08/22/17 22:59 06:59 14:59 Intake Total 1194 Balance 1194 Lab Results - Last 24 hrs: Laboratory Results - last 24 hr 08/22/17 08/22/17 Range/Units 06:30 06:30 WBC 6.6 (4.5-11.0) K/uL RBC 3.82 (3.30-5.50) M/uL Hgb 11.9 L (12.0-15.0) g/dL Hct 35.8 L (36.0-48.0) % MCV 94 (80-98) fL MCH 31 (27-31) pg MCHC 33 (32-36) % Plt Count 258 (150-400) K/uL Neut % (Auto) 71 H (36-66) % Lymph % (Auto) 15 L (24-44) % [place] % (Auto) 13 H (2-6) % Eos % (Auto) 1 L (2-4) % Baso % (Auto) 0 (0-1) % Sodium 141 (140-148) mmol/L Potassium 4.0 (3.6-5.2) mmol/L Chloride 111 H (100-108) mmol/L Carbon Dioxide 23 (21-32) mmol/L Anion Gap 11.0 (5.0-14.0) mmol/L BUN 8 (7-18) mg/dL Creatinine 1.0 (0.6-1.0) mg/dL Est Cr Clr Drug Dosing 64.72 mL/min Estimated GFR (MDRD) 58 L (>60) Glucose 79 (74-106) mg/dL Calcium 8.1 L (8.5-10.1) mg/dL Magnesium 1.7 L (1.8-2.4) mg/dL Med Orders - Current: Current Medications Acetaminophen (Tylenol) 650 mg PO Q4H PRN PRN Reason: Pain (Mild 1-3)/fever Hydrocodone Bitart/Acetaminophen ([place] 325-5 Mg) 1 - 2 tab PO Q4H PRN PRN Reason: Pain Last Admin: 08/22/17 04:45 Dose: 2 tab Baclofen (Lioresal) 10 mg PO BID [facility] Last Admin: 08/22/17 09:43 Dose: 10 mg Estradiol (Estradiol) 0.5 mg PO DAILY [facility] Last Admin: 08/22/17 09:41 Dose: 0.5 mg Lactated Ringer's (Ringers, Lactated) 1,000 mls @ 125 mls/hr IV ASDIRECTED [facility] Last Admin: 08/22/17 10:01 Dose: 125 mls/hr [place] Carbonate ([place] Carbonate) 150 mg PO BEDTIME [facility] Last Admin: 08/21/17 22:08 Dose: 150 mg Loratadine (Claritin) 10 mg PO DAILY [facility] Last Admin: 08/22/17 11:41 Dose: Not Given Biotin [Biotin] 300 (McgPom) 0 mcg PO DAILY [facility] Last Admin: 08/22/17 11:41 Dose: Not Given Brexpiprazole [ (Rexulti] 1 MgPom) 0 mg PO DAILY [facility] Last Admin: 08/22/17 09:41 Dose: 1 mg Duloxetine [Cymbalta (] 60mgPom) 0 tab PO DAILY [facility] Last Admin: 08/22/17 09:42 Dose: 120 tab Lisdexamfetamine [ (Vyvanse] 70 MgPom*) 70 mg PO DAILY [facility] Last Admin: 08/22/17 09:40 Dose: 70 mg Phenazopyridine (200mg Pom) 0 each PO TID PRN PRN Reason: Pain Last Admin: 08/22/17 09:42 Dose: 1 each Nortriptyline HCl (Nortriptyline) 25 mg PO BEDTIME [facility] Last Admin: 08/21/17 22:08 Dose: 25 mg Ondansetron HCl (Zofran) 4 mg IV Q4H PRN PRN Reason: Nausea/Vomiting Pantoprazole Sodium (Protonix Iv) 40 mg IVPUSH Q24H [facility] Last Admin: 08/21/17 22:19 Dose: 40 mg Pregabalin (Lyrica) 200 mg PO BID [facility] Last Admin: 08/22/17 09:46 Dose: 200 mg Sodium Chloride (Saline Flush) 10 ml FLUSH ASDIRECTED PRN PRN Reason: Keep Vein Open Discontinued Medications Baclofen (Lioresal) mg PO BID [facility] Hydromorphone HCl (Dilaudid) 0.5 mg IVPUSH ONETIME ONE Stop: 08/21/17 19:45 Last Admin: 08/21/17 19:53 Dose: 0.5 mg Lactated Ringer's (Ringers, Lactated) 1,000 mls @ 1,000 mls/hr IV ASDIRECTED [facility] Last Admin: 08/21/17 17:43 Dose: 1,000 mls/hr Lactated Ringer's (Ringers, Lactated) 1,000 mls @ 999 mls/hr IV BOLUS ONE Stop: 08/21/17 20:07 Last Admin: 08/21/17 19:09 Dose: 999 mls/hr Lactated Ringer's (Ringers, Lactated) 500 mls @ 250 mls/hr IV .BOLUS [facility] Stop: 08/22/17 00:40 Potassium Chloride 40 meq/ (Premix) 100 mls @ 25 mls/hr IV ONETIME ONE Stop: 08/22/17 00:38 Last Admin: 08/21/17 22:16 Dose: 25 mls/hr Magnesium Sulfate 2 gm/ Premix 50 mls @ 25 mls/hr IV ONETIME ONE Stop: 08/22/17 10:59 Last Admin: 08/22/17 09:54 Dose: 25 mls/hr Lidocaine HCl (Xylocaine-Mpf 1%) 4 ml INJECT ONETIME ONE Stop: 08/21/17 22:04 Last Admin: 08/21/17 22:16 Dose: 4 ml Non-Formulary Medication (Hydrocodone/Acetaminophen [Vicodin 5-300 Mg Tablet]) 1 - 2 tab PO Q4H PRN PRN Reason: Pain Phenazopyridine HCl (Urinary Pain Relief) 190 mg PO TID PRN PRN Reason: Pain Pregabalin (Lyrica) 200 mg PO BID TORSTEN Last Admin: 08/21/17 22:08 Dose: 200 mg Sodium Chloride (Saline Flush) 10 ml FLUSH ASDIRECTED PRN PRN Reason: Keep Vein Open Last Admin: 08/21/17 17:43 Dose: 10 ml *Q Meaningful Use (DIS) - VTE *Q VTE Criteria *Q: - Stroke *Q Stroke Criteria *Q: - AMI *Q AMI Criteria *Q:
== END 2017-08-22 14:16 | disposition home or self-care (01) ==
LOC: JP.ED 16:18 → JP.MS 19:49
PROVIDERS: ADMIT Hospitalist; ATTEND Hospitalist
DX: K52.9 Noninfective gastroenteritis and colitis, unspecified (principal); R07.81 Pleurodynia; R11.2 Nausea with vomiting, unspecified; R19.7 Diarrhea, unspecified; E87.6 Hypokalemia; E83.42 Hypomagnesemia; Z79.899 Other long term (current) drug therapy; Z88.0 Allergy status to penicillin; Z88.8 Allergy status to other drugs, medicaments and biological substances
CPT/HCPCS: 36415; 80048; 80053; 81001; 82607; 83735; 85025; 96360; 96361; 99217; 99219; 99285; A9270; C9113; J1170; J3475; J3480; J7050; J7120

== ENCOUNTER 2017-09-03 09:31 | Day surgery (SDC) | payer MEDICARE, BC ==
[2017-09-03] MEDS ORDERED: Lactated Ringers 1,000 ML IV SCH (09:45)
[2017-09-03] MEDS ORDERED: Midazolam 1 MG/ML 2 ML SDV ONE (11:12)
[2017-09-03] MEDS ORDERED: Propofol 200 MG/20 ML SDV ONE (11:12)
[2017-09-03] MEDS ORDERED: fentaNYL 100 MCG/2 ML SDV ONE (11:12)
[2017-09-03 12:57] VITALS: BP 105/69
--- NOTE | 2017-09-04 07:50 | OR ---
DATE OF PROCEDURE: 09/03/2017 PROCEDURE: Colonoscopy. FINDINGS: Mild inflammation. PREOPERATIVE DIAGNOSES: Positive lab test concerning for irritable/inflammatory bowel disease and chronic diarrhea. POSTOPERATIVE DIAGNOSES: Positive lab test concerning for irritable/inflammatory bowel disease and chronic diarrhea. RISKS: Risks, benefits, alternatives, limitations including, but not limited to infection, bleeding, and perforation were explained to the patient and wished to proceed. PROCEDURE IN DETAIL: The patient was placed in left lateral decubitus position. Digital rectal exam was performed without abnormality. The scope was introduced and advanced atraumatically to the ileocecal valve. Shows intact colon, there is very mild inflammation which could be concerning for irritable/inflammatory bowel disease, therefore, random biopsies of the cecum, sigmoid, and rectum were performed using cold biopsy forceps. The scope was brought back to the colon. There was no evidence of old or new blood. No diverticulosis. No masses. No other concerns. The patient tolerated the procedure well. Castro Bautista MD /[id number]
== END 2017-09-03 12:45 | disposition home or self-care (01) ==
LOC: JP.SDS 09:31
PROVIDERS: ATTEND Surgery
DX: K52.9 Noninfective gastroenteritis and colitis, unspecified (principal); Z88.0 Allergy status to penicillin; Z88.1 Allergy status to other antibiotic agents; Z88.8 Allergy status to other drugs, medicaments and biological substances
CPT/HCPCS: 88305; J2250; J2704; J3010; J7120

== ENCOUNTER 2017-09-04 13:48 | Emergency (ER) | payer MEDICARE, BC ==
[2017-09-04 14:09] VITALS: BP 116/54
[2017-09-04] MEDS ORDERED: Magnesium Sulfate/Water 2 GM in Premix Bag 1 BAG IV ONE (15:38)
[2017-09-04] MEDS ORDERED: Sodium Chloride 0.9% 80 ML IV SCH (15:45)
[2017-09-04] MEDS ORDERED: Iopamidol 612 MG/ML 100 ML Bottle IV SCH (15:45)
--- NOTE | 2017-09-04 15:52 | EDM.PDOC ---
ED HPI GENERAL MEDICAL PROBLEM - General Chief Complaint: Gastrointestinal Problem Stated Complaint: VOMITING Time Seen by Provider: 09/04/17 14:25 Source of Information: Reports: Patient History Limitations: Reports: No Limitations - History of Present Illness INITIAL COMMENTS - FREE TEXT/NARRATIVE: 51-year-old female with persistent diarrhea for the past 2-1/2 weeks, now developing some intermittent left upper quadrant pain. No fevers or chills. The nausea has improved, she has not had any vomiting for the last 24 hours the diarrhea is very persistent, frothy, with occasional fecal incontinence. The colonoscopy she had 2 days ago was basically normal, some biopsies were obtained. She is just tired of being sick. Severity: Moderate Worsens with: Reports: Eating (Every time she eats something the diarrhea recurs.) Associated Symptoms: Reports: Loss of Appetite, Malaise, Nausea/Vomiting. Denies: Cough, Fever/Chills, Weakness - Related Data Allergies Allergy/AdvReac Type Severity Reaction Status Date / Time Penicillins Allergy Severe Anaphylactic Verified 09/04/17 14:01 Shock cefoxitin [From Mefoxin] Allergy Anaphylactic Verified 09/04/17 14:01 Shock diphenhydramine AdvReac Anxiety Verified 09/04/17 14:01 [From Benadryl] Home Meds: Home Meds DULoxetine [Cymbalta] 120 tab PO DAILY 03/01/14 [History] Acetaminophen [Tylenol Extra Strength] 2 tab PO Q6H PRN 01/25/15 [History] Baclofen 1 - 2 tab PO TID PRN 01/25/15 [History] Calcium Carbonate 1,000 mg PO DAILY 01/25/15 [History] Cholecalciferol (Vitamin D3) [Vitamin D3] 5,000 units PO DAILY 01/25/15 [History ] [place]-3 Fatty Acids/Fish Oil [Hm Fish Oil 1,200 mg Softgel] 1,200 mg PO DAILY [History] Pregabalin [Lyrica] 200 mg PO BID 01/25/15 [History] Alendronate [Fosamax] 70 mg PO Q7D@0600 03/24/17 [History] Biotin 100 mg PO TID 03/24/17 [History] Brexpiprazole [Rexulti] 1 mg PO DAILY 03/24/17 [History] Fluticasone Propionate [Flonase] 2 spray NS DAILY 03/24/17 [History] Ibuprofen 600 mg PO Q6H PRN 03/24/17 [History] Ipratropium [Atrovent 0.03% Nasal [place]] 2 spray MOUSTAPHA BID 03/24/17 [History] Ketorolac [Toradol] 10 mg PO Q6H PRN 03/24/17 [History] Lisdexamfetamine [Vyvanse] 70 mg PO DAILY 03/24/17 [History] Loratadine [Claritin] 10 mg PO DAILY 03/24/17 [History] Phenazopyridine HCl [Pyridium] 200 mg PO TID PRN 03/24/17 [History] QUEtiapine Fumarate [Seroquel] 0.5 - 2 tab PO BEDTIME PRN 03/24/17 [History] Cephalexin 500 mg PO ASDIRECTED 08/20/17 [History] Estradiol 0.5 mg PO DAILY 08/20/17 [History] [place] Carbonate 150 mg PO BEDTIME 08/20/17 [History] Nortriptyline 25 mg PO BEDTIME 08/20/17 [History] Ondansetron [Zofran ODT] 4 mg PO Q6H PRN #7 tab.dis 08/20/17 [Rx] Loperamide [Imodium] 2 mg PO Q4H PRN #30 cap 08/22/17 [Rx] Diphenoxylate HCl/Atropine [Lomotil Tablet] 2 tab PO QID PRN 09/01/17 [History] Glycopyrrolate [Robinul] 0.5 - 1 tab PO BID PRN 09/01/17 [History] Metaxalone 800 mg PO BID PRN 09/01/17 [History] Polyethylene Glycol 3350 [Miralax] 17 gm PO DAILY 09/01/17 [History] Past Medical History HEENT History: Reports: Allergic Rhinitis, Impaired Vision Cardiovascular History: Reports: None Respiratory History: Reports: None Gastrointestinal History: Reports: None, Chronic Constipation Genitourinary History: Reports: Neurogenic Bladder, Urinary Incontinence [employer] History: Reports: Dysfunctional Uterine Bleeding, Musculoskeletal History: Reports: Back Pain, Chronic, Fracture, Osteoarthritis, Other (See Below) Other Musculoskeletal History: MS, herniated disc Neurological History: Reports: MS Psychiatric History: Reports: Addiction, Depression, Psych Hospitalization(s) Endocrine/Metabolic History: Reports: Osteoporosis Hematologic History: Reports: Blood Transfusion(s) Immunologic History: Reports: None Oncologic (Cancer) History: Reports: None Other Dermatologic History: skin graft - Infectious Disease History Infectious Disease History: Reports: C-Difficile - Past Surgical History Head Surgeries/Procedures: Reports: None HEENT Surgical History: Reports: None Cardiovascular Surgical History: Reports: None GI Surgical History: Reports: Colonoscopy, Other (See Below) Other GI Surgeries/Procedures: I and D following DIEGO Female Surgical History: Reports: Section, D&C, Hysterectomy, Salpingo-Oophorectomy Endocrine Surgical History: Reports: None Neurological Surgical History: Reports: None Musculoskeletal Surgical History: Reports: Arthroscopic Knee Oncologic Surgical History: Reports: None Social & Family History - Family History Family Medical History: Noncontributory - Tobacco Use Smoking Status *Q: Never Smoker Second Hand Smoke Exposure: No - Caffeine Use Caffeine Use: Reports: None - Alcohol Use Days Per Week of Alcohol Use: 0 - Recreational Drug Use Recreational Drug Use: No ED ROS GENERAL - Review of Systems Review Of Systems: See Below Constitutional: Reports: Malaise, Weakness. Denies: Fever, Chills HEENT: Reports: No Symptoms Respiratory: Denies: Shortness of Breath Cardiovascular: Denies: Chest Pain GI/Abdominal: Reports: Abdominal Pain (Left upper quadrant), Diarrhea, Nausea. Denies: Constipation Musculoskeletal: Reports: No Symptoms Skin: Reports: No Symptoms Neurological: Denies: Headache ED EXAM, GI/ABD - Physical Exam Exam: See Below Exam Limited By: No Limitations General Appearance: Alert, No Apparent Distress Eyes: Bilateral: Normal Appearance (Normal hydration, no jaundice) Head: Atraumatic Respiratory/Chest: No Respiratory Distress, Lungs Clear Cardiovascular: Regular Rate, Rhythm GI/Abdominal Exam: Normal Bowel Sounds, Soft, Tender (Small amount of left upper quadrant tenderness to palpation with no guarding or rebound) Extremities: Normal Inspection. No: Pedal Edema Neurological: Alert, Oriented Psychiatric: Normal Affect, Normal Mood Skin Exam: Warm, Dry Course - Vital Signs Last Recorded V/S: Last Vital Signs Temp 96.1 F 09/04/17 14:08 Pulse 83 09/04/17 14:08 Resp 14 09/04/17 14:08 BP 116/54 L 09/04/17 14:08 Pulse Ox 97 09/04/17 14:08 - Orders/Labs/Meds Orders: Active Orders 24 hr Category Date Time Status Abdomen Pelvis w Cont [CT] Stat Exams 09/04/17 15:37 Taken CLOSTRIDIUM DIFFICILE BY PCR [] Stat Lab 09/04/17 15:39 Results CULTURE STOOL + SHIGATOX [RM] Stat Lab 09/04/17 15:39 Results OVA AND PARASITES [MREF] Stat Lab 09/04/17 15:00 Received Labs: Laboratory Tests 09/04/17 09/04/17 Range/Units 14:36 14:36 WBC 11.0 (4.5-11.0) K/uL RBC 4.21 (3.30-5.50) M/uL Hgb 13.0 (12.0-15.0) g/dL Hct 38.3 (36.0-48.0) % MCV 91 (80-98) fL MCH 31 (27-31) pg MCHC 34 (32-36) % Plt Count 491 H (150-400) K/uL Neut % (Auto) 64 (36-66) % Lymph % (Auto) 16 L (24-44) % [place] % (Auto) 7 H (2-6) % Eos % (Auto) 12 H (2-4) % Baso % (Auto) 1 (0-1) % Sodium 149 H (140-148) mmol/L Potassium 3.3 L (3.6-5.2) mmol/L Chloride 113 H (100-108) mmol/L Carbon Dioxide 26 (21-32) mmol/L Anion Gap 13.3 (5.0-14.0) mmol/L BUN 10 (7-18) mg/dL Creatinine 0.9 (0.6-1.0) mg/dL Est Cr Clr Drug Dosing 71.91 mL/min Estimated GFR (MDRD) > 60 (>60) Glucose 90 (74-106) mg/dL Calcium 7.7 L (8.5-10.1) mg/dL Magnesium 1.2 L (1.8-2.4) mg/dL Total Bilirubin 0.5 (0.2-1.0) mg/dL AST 23 (15-37) U/L ALT 34 (12-78) U/L Alkaline Phosphatase 100 (46-116) U/L Total Protein 6.4 (6.4-8.2) g/dL Albumin 2.9 L (3.4-5.0) g/dL Globulin 3.5 (2.3-3.5) g/dL Albumin/Globulin Ratio 0.8 L (1.2-2.2) Meds: Medications Discontinued Medications Generic Name Dose Route Start Last Admin Trade Name Maria Teresa PRN Reason Stop Dose Admin Magnesium Sulfate 2 gm/ Premix 50 mls @ 12.5 mls/hr 09/04/17 15:38 09/04/17 16:29 IV 09/04/17 19:37 12.5 mls/hr ONETIME ONE Administration Sodium Chloride 80 mls @ 3 mls/sec 09/04/17 15:45 09/04/17 16:10 Normal Saline IV 3 mls/sec ASDIRECTED TORSTEN Administration Sodium Chloride 250 mls @ 250 mls/hr 09/04/17 16:45 Normal Saline IV ASDIRECTED TORSTEN Sodium Chloride 1,000 mls @ 250 mls/hr 09/04/17 16:45 09/04/17 16:35 Normal Saline IV 250 mls/hr ASDIRECTED TORSTEN Administration Iopamidol 100 ml 09/04/17 15:45 09/04/17 16:10 Isovue-300 (61%) IV 100 ml . DIRECTED TORSTEN Administration Metronidazole 500 mg 09/04/17 17:32 09/04/17 17:39 Metronidazole PO 09/04/17 17:33 500 mg ONETIME ONE Administration Sodium Chloride 10 ml 09/04/17 15:45 09/04/17 16:30 Saline Flush FLUSH 10 ml ASDIRECTED PRN Administration Keep Vein Open - Re-Assessments/Exams Free Text/Narrative Re-Assessment/Exam: 09/04/17 17:35 CBC, CMP were recheck. Magnesium was obtained. Intent is a CT of the abdomen and pelvis with IV contrast. We also are going collect a stool sample. 09/04/17 17:36 White count hemoglobin are normal. Magnesium is only 1.2, potassium 3.3 otherwise chemistry panel was reassuring. Stool sample was obtained, light green very liquid frothy stool. This was sent for C. difficile, culture and O&P along with WBCs. 09/04/17 17:39 C. difficile was negative, WBCs were rare. Patient will be given 500 mg of oral metronidazole, 2 g of IV magnesium along with IV fluids and started on metronidazole 3 times a day for 7 days. This is pending O&P. Departure - Departure Time of Disposition: 19:30 Disposition: Home, Self-Care 01 Condition: Fair Clinical Impression: Enteritis - Discharge Information Instructions: Diarrhea, Adult, [id number] Referrals: John Kerr MD [Primary Care Provider] - Forms: ED Department Discharge Care Plan Goals: Continue with aggressive fluids, and take antibiotic 3 times daily for at least 7 days as prescribed. Recheck in 3-5 days if not improving satisfactorily. Return sooner if worsening or concerns. - My Orders Last 24 Hours: My Active Orders 09/04/17 15:00 OVA AND PARASITES [MREF] Stat 09/04/17 15:37 Abdomen Pelvis w Cont [CT] Stat 09/04/17 15:39 CLOSTRIDIUM DIFFICILE BY PCR [RM] Stat CULTURE STOOL + SHIGATOX [RM] Stat - Assessment/Plan Last 24 Hours: My Active Orders 09/04/17 15:00 OVA AND PARASITES [MREF] Stat 09/04/17 15:37 Abdomen Pelvis w Cont [CT] Stat 09/04/17 15:39 CLOSTRIDIUM DIFFICILE BY PCR [RM] Stat CULTURE STOOL + SHIGATOX [RM] Stat
[2017-09-04] MEDS: Sodium Chloride 0.9% 10 ML Syringe FLUSH PRN ×2 (16:10→16:30)
[2017-09-04] MEDS ORDERED: Sodium Chloride 0.9% 1,000 ML IV SCH (16:45)
[2017-09-04] MEDS ORDERED: Sodium Chloride 0.9% 250 ML IV SCH (16:45)
[2017-09-04] MEDS ORDERED: metroNIDAZOLE 250 MG Tab PO ONE (17:32)
== END 2017-09-04 19:31 | disposition home or self-care (01) ==
LOC: JP.ED 13:48
DX: K52.9 Noninfective gastroenteritis and colitis, unspecified (principal); Z88.0 Allergy status to penicillin; Z88.8 Allergy status to other drugs, medicaments and biological substances; Z79.899 Other long term (current) drug therapy
CPT/HCPCS: 36415; 74177; 80053; 83735; 85025; 87046; 87177; 87209; 87493; 87899; 89055; 96365; 96366; 99284-25; A9270-GY; J3475; J7030; J7040; J7050; Q9967

== ENCOUNTER 2017-12-22 02:14 | Emergency (ER) | payer MEDICARE, BC ==
[2017-12-22 02:41] VITALS: BP 122/57
[2017-12-22] MEDS ORDERED: Albuterol/Ipratropium 3.0-0.5 MG/3 ML Neb Soln NEB ONE (03:10)
--- NOTE | 2017-12-22 03:13 | EDM.PDOC ---
ED HPI GENERAL MEDICAL PROBLEM - General Chief Complaint: General Stated Complaint: SOB Time Seen by Provider: 12/22/17 03:05 Source of Information: Reports: Patient, RN Notes Reviewed History Limitations: Reports: No Limitations - History of Present Illness INITIAL COMMENTS - FREE TEXT/NARRATIVE: 51-year-old female presents to the emergency department today with complaint of shortness of breath, she states she's been ill for about a week and half cough congestion she's also developed purulent age out of her right eye Generalized Pain Score (Numeric/FACES): 2 - Related Data Allergies Allergy/AdvReac Type Severity Reaction Status Date / Time Penicillins Allergy Severe Anaphylactic Verified 12/22/17 02:25 Shock cefoxitin [From Mefoxin] Allergy Anaphylactic Verified 12/22/17 02:25 Shock diphenhydramine AdvReac Anxiety Verified 12/22/17 02:25 [From Benadryl] Home Meds: Home Meds DULoxetine [Cymbalta] 120 tab PO DAILY 03/01/14 [History] Acetaminophen [Tylenol Extra Strength] 2 tab PO Q6H PRN 01/25/15 [History] Baclofen 1 - 2 tab PO BID 01/25/15 [History] Calcium Carbonate 1,000 mg PO DAILY 01/25/15 [History] Cholecalciferol (Vitamin D3) [Vitamin D3] 5,000 units PO DAILY 01/25/15 [History ] [place]-3 Fatty Acids/Fish Oil [Hm Fish Oil 1,200 mg Softgel] 1,200 mg PO DAILY [History] Pregabalin [Lyrica] 200 mg PO BID 01/25/15 [History] Alendronate [Fosamax] 70 mg PO Q7D@0600 03/24/17 [History] Biotin 100 mg PO TID 03/24/17 [History] Brexpiprazole [Rexulti] 1 mg PO DAILY 03/24/17 [History] Fluticasone Propionate [Flonase] 2 spray NS DAILY 03/24/17 [History] Ibuprofen 600 mg PO Q6H PRN 03/24/17 [History] Ipratropium [Atrovent 0.03% Nasal [place]] 2 spray MOUSTAPHA BID 03/24/17 [History] Lisdexamfetamine [Vyvanse] 70 mg PO DAILY 03/24/17 [History] Loratadine [Claritin] 10 mg PO DAILY 03/24/17 [History] QUEtiapine Fumarate [Seroquel] 0.5 - 2 tab PO BEDTIME PRN 03/24/17 [History] Cephalexin 500 mg PO ASDIRECTED 08/20/17 [History] Estradiol 0.75 mg PO DAILY 08/20/17 [History] [place] Carbonate 150 mg PO BEDTIME 08/20/17 [History] Nortriptyline 25 mg PO BEDTIME 08/20/17 [History] Glycopyrrolate [Robinul] 1 tab PO BID PRN 09/01/17 [History] Polyethylene Glycol 3350 [Miralax] 17 gm PO DAILY 09/01/17 [History] Brexpiprazole [Rexulti] 1 mg PO DAILY 12/22/17 [History] Past Medical History HEENT History: Reports: Allergic Rhinitis, Impaired Vision Gastrointestinal History: Reports: Chronic Constipation Genitourinary History: Reports: Neurogenic Bladder, Urinary Incontinence, UTI, Recurrent [employer] History: Reports: Dysfunctional Uterine Bleeding, Musculoskeletal History: Reports: Back Pain, Chronic, Fracture, Osteoarthritis, Other (See Below) Other Musculoskeletal History: MS, herniated disc Neurological History: Reports: MS Psychiatric History: Reports: Addiction, Depression, Psych Hospitalization(s) Endocrine/Metabolic History: Reports: Osteoporosis Hematologic History: Reports: Blood Transfusion(s) Other Dermatologic History: skin graft - Infectious Disease History Infectious Disease History: Reports: C-Difficile - Past Surgical History Head Surgeries/Procedures: Reports: None HEENT Surgical History: Reports: None Cardiovascular Surgical History: Reports: None GI Surgical History: Reports: Colonoscopy, Other (See Below) Other GI Surgeries/Procedures: I and D following [place] Female Surgical History: Reports: Section, D&C, Hysterectomy, Salpingo-Oophorectomy Endocrine Surgical History: Reports: None Neurological Surgical History: Reports: None Musculoskeletal Surgical History: Reports: Arthroscopic Knee Oncologic Surgical History: Reports: None Social & Family History - Family History Family Medical History: Noncontributory - Tobacco Use Smoking Status *Q: Never Smoker - Caffeine Use Caffeine Use: Reports: Coffee - Recreational Drug Use Recreational Drug Use: No ED ROS GENERAL - Review of Systems Review Of Systems: See Below Constitutional: Denies: Fever, Chills HEENT: Reports: Eye Discharge Respiratory: Reports: Shortness of Breath, Cough, Sputum. Denies: Wheezing Cardiovascular: Reports: No Symptoms GI/Abdominal: Reports: No Symptoms : Reports: No Symptoms Musculoskeletal: Reports: No Symptoms Skin: Reports: No Symptoms ED EXAM, GENERAL - Physical Exam Exam: See Below Exam Limited By: No Limitations General Appearance: Alert, WD/WN, No Apparent Distress Eye Exam: Right Eye: Conjunctival Injection, Other (Drainage right eye), Left Eye: Normal Inspection Head: Atraumatic, Normocephalic Neck: Normal Inspection, Supple, Non-Tender, Full Range of Motion Respiratory/Chest: No Respiratory Distress, No Accessory Muscle Use, Chest Non- Tender, Prolonged Expiration Cardiovascular: Regular Rate, Rhythm, No Murmur GI/Abdominal: Soft, Non-Tender Course - Vital Signs Last Recorded V/S: Last Vital Signs Temp 98.6 F 12/22/17 02:40 Pulse 87 12/22/17 02:40 Resp 20 12/22/17 02:40 BP 122/57 L 12/22/17 02:40 Pulse Ox 94 L 12/22/17 02:40 - Orders/Labs/Meds Orders: Active Orders 24 hr Category Date Time Status RT Aerosol Therapy [RC] ASDIRECTED Care 12/22/17 03:10 Active Chest 2V [CR] Urgent Exams 12/22/17 03:09 Taken Labs: Laboratory Tests 12/22/17 12/22/17 12/22/17 Range/Units 03:15 03:15 03:15 WBC 10.3 (4.5-11.0) K/uL RBC 4.17 (3.30-5.50) M/uL Hgb 12.5 (12.0-15.0) g/dL Hct 37.6 (36.0-48.0) % MCV 90 (80-98) fL MCH 30 (27-31) pg MCHC 33 (32-36) % Plt Count 410 H (150-400) K/uL Neut % (Auto) 70 H (36-66) % Lymph % (Auto) 17 L (24-44) % [place] % (Auto) 12 H (2-6) % Eos % (Auto) 1 L (2-4) % Baso % (Auto) 1 (0-1) % Sodium 140 (140-148) mmol/L Potassium 4.1 (3.6-5.2) mmol/L Chloride 103 (100-108) mmol/L Carbon Dioxide 27 (21-32) mmol/L Anion Gap 10.1 (5.0-14.0) mmol/L BUN 19 H D (7-18) mg/dL Creatinine 1.0 (0.6-1.0) mg/dL Est Cr Clr Drug Dosing 64.72 mL/min Estimated GFR (MDRD) 58 L (>60) Glucose 109 H (74-106) mg/dL Lactic Acid 0.9 (0.4-2.0) mmol/L Calcium 8.7 (8.5-10.1) mg/dL Meds: Medications Discontinued Medications Generic Name Dose Route Start Last Admin Trade Name Freq PRN Reason Stop Dose Admin Albuterol/Ipratropium 3 ml 12/22/17 03:10 12/22/17 03:16 Duoneb 3.0-0.5 Mg/3 Ml NEB 12/22/17 03:11 3 ml ONETIME ONE Administration Departure - Departure Time of Disposition: 04:20 Disposition: Home, Self-Care 01 Condition: Good Clinical Impression: Bronchitis Conjunctivitis Qualifiers: Conjunctivitis type: acute Acute conjunctivitis type: bacterial Laterality: right Qualified Code(s): H10.31 - Unspecified acute conjunctivitis, right eye - Discharge Information Referrals: PCP,None [Primary Care Provider] - Forms: ED Department Discharge Additional Instructions: Take full course of antibiotics, use Robitussin-AC as needed help suppress the cough Please followup with your primary care provider in 3-5 days if not better , please call return to the emergency department with worsening of symptoms. - My Orders Last 24 Hours: My Active Orders 12/22/17 03:09 Chest 2V [CR] Urgent 12/22/17 03:10 RT Aerosol Therapy [RC] ASDIRECTED - Assessment/Plan Last 24 Hours: My Active Orders 12/22/17 03:09 Chest 2V [CR] Urgent 12/22/17 03:10 RT Aerosol Therapy [RC] ASDIRECTED Plan: Assessment Acuity = acute Site and laterality = bronchitis and conjunctivitis left eye Etiology = probable bacterial cause Manifestations = dyspnea Location of injury = Home Lab values = CBC, BMP, lactic acid all within normal limits chest x-ray I did review films myself I cannot appreciate any acute process, the official read from radiology is pending Plan Will treat empirically with azithromycin per package directions, Robitussin-AC 10 mL by mouth every 4-6 hours when necessary 120 mL bottle, gentamicin ophthalmic 2 drops 3 times a day for 7 days follow-up primary care 3-5 days if no improvement This note was dictated using [employer] recognition software please call with any questions on syntax or grammar.
--- NOTE | 2017-12-22 09:23 | CR ---
CHEST: 2 view CLINICAL HISTORY:Shortness of breath COMPARISON:25 January 2015 FINDINGS: Size and pulmonary vascularity are normal. The there is some patchy density in the left lo wer lobe. Some of this may be superimposition. It is not definitively identified on the lateral image . IMPRESSION: Minimal patchy density near the cardiac apex. This may represent superimposition. A smal l left lower lobe or lingular infiltrate is not excluded. If clinically relevant short-term follow-up recommended
== END 2017-12-22 04:45 | disposition home or self-care (01) ==
LOC: JP.ED 02:14
DX: J40 Bronchitis, not specified as acute or chronic (principal); H10.31 Unspecified acute conjunctivitis, right eye; Z88.0 Allergy status to penicillin; Z88.8 Allergy status to other drugs, medicaments and biological substances; Z79.899 Other long term (current) drug therapy; Z87.442 Personal history of urinary calculi
CPT/HCPCS: 36415; 71046; 80048; 83605; 85025; 94640; 99285; J7620

== ENCOUNTER 2018-09-15 15:32 | Emergency (ER) | payer MEDICARE, BC ==
--- NOTE | 2018-09-15 16:12 | EDM.PDOC ---
ED HPI GENERAL MEDICAL PROBLEM - General Chief Complaint: Neck Problem Stated Complaint: NECK PAIN FROM SURGERY Time Seen by Provider: 09/15/18 16:00 Source of Information: Reports: Patient History Limitations: Reports: No Limitations - History of Present Illness INITIAL COMMENTS - FREE TEXT/NARRATIVE: This lady underwent cervical spine surgery 2 days ago. This was for a ruptured disc. She's taking Narco 2 tablets every 4 hours. I believe that's the . It 's just not giving her good pain relief. Neck Pain Score (Numeric/FACES): 9 - Related Data Allergies Allergy/AdvReac Type Severity Reaction Status Date / Time Penicillins Allergy Severe Anaphylactic Verified 09/15/18 15:50 Shock cefoxitin [From Mefoxin] Allergy Anaphylactic Verified 09/15/18 15:50 Shock diphenhydramine AdvReac Anxiety Verified 09/15/18 15:50 [From Benadryl] Home Meds: Home Meds Acetaminophen [Tylenol Extra Strength] 2 tab PO Q6H PRN 01/25/15 [History] Baclofen 1 - 2 tab PO BID 01/25/15 [History] Calcium Carbonate 1,000 mg PO DAILY 01/25/15 [History] Cholecalciferol (Vitamin D3) [Vitamin D3] 5,000 units PO DAILY 01/25/15 [History ] Pregabalin [Lyrica] 150 mg PO BID 01/25/15 [History] Alendronate [Fosamax] 70 mg PO Q7D@0600 03/24/17 [History] Brexpiprazole [Rexulti] 2 mg PO DAILY 03/24/17 [History] Fluticasone Propionate [Flonase] 2 spray NS DAILY 03/24/17 [History] Ibuprofen 600 mg PO Q6H PRN 03/24/17 [History] Ipratropium [Atrovent 0.03% Nasal [place]] 2 spray MOUSTAPHA BID 03/24/17 [History] Lisdexamfetamine [Vyvanse] 70 mg PO DAILY 03/24/17 [History] Loratadine [Claritin] 10 mg PO DAILY 03/24/17 [History] QUEtiapine Fumarate [Seroquel] 0.5 - 2 tab PO BEDTIME PRN 03/24/17 [History] Estradiol 0.75 mg PO DAILY 08/20/17 [History] Glycopyrrolate [Robinul] 1 tab PO BID PRN 09/01/17 [History] buPROPion HCl [Wellbutrin Xl] 300 mg PO DAILY 06/29/18 [History] Cyclobenzaprine [Flexeril] 10 mg PO Q8HR 09/15/18 [History] Hydrocodone/Acetaminophen [Vicodin 5-300 mg Tablet] 2 cap PO Q4HR 09/15/18 [ History] Past Medical History HEENT History: Reports: Allergic Rhinitis, Impaired Vision Respiratory History: Reports: None Gastrointestinal History: Reports: Chronic Constipation Genitourinary History: Reports: Neurogenic Bladder, Urinary Incontinence, UTI, Recurrent [employer]CH[employer]IAN History: Reports: Dysfunctional Uterine Bleeding, Musculoskeletal History: Reports: Back Pain, Chronic, Fracture, Neck Pain, Chronic, Osteoarthritis, Other (See Below) Other Musculoskeletal History: MS, herniated disc Neurological History: Reports: MS Psychiatric History: Reports: Addiction, Depression, Psych Hospitalization(s) Endocrine/Metabolic History: Reports: Osteoporosis Hematologic History: Reports: Blood Transfusion(s) Immunologic History: Reports: None Other Dermatologic History: skin graft - Infectious Disease History Infectious Disease History: Reports: C-Difficile - Past Surgical History Head Surgeries/Procedures: Reports: None HEENT Surgical History: Reports: None GI Surgical History: Reports: Colonoscopy, Other (See Below) Other GI Surgeries/Procedures: I and D following DIE[place] Female Surgical History: Reports: Section, D&C, Hysterectomy, Salpingo-Oophorectomy Endocrine Surgical History: Reports: None Neurological Surgical History: Reports: None, C-Spine Other Neurological Surgeries/Procedures: herniated dic nec surg 08/2018 Musculoskeletal Surgical History: Reports: Arthroscopic Knee Social & Family History - Family History Family Medical History: Noncontributory - Tobacco Use Smoking Status *Q: Never Smoker - Caffeine Use Caffeine Use: Reports: Coffee - Recreational Drug Use Recreational Drug Use: No ED ROS GENERAL - Review of Systems Review Of Systems: ROS reveals no pertinent complaints other than HPI. ED EXAM, UPPER BACK/NECK PAIN - Physical Exam Exam: See Below Exam Limited By: No Limitations General Appearance: Alert, WD/WN, Mild Distress Neck Exam: Other (She holds her neck perfectly still. There is a fresh incision over the dorsal aspect of the C-spine down at about the C7 level.) Neurologic: No Motor/Sensory Deficits Course - Vital Signs Last Recorded V/S: Last Vital Signs Temp 36.1 C 09/15/18 15:50 Pulse 78 09/15/18 15:59 Resp 18 09/15/18 15:59 BP 132/55 L 09/15/18 15:59 Pulse Ox 93 L 09/15/18 15:59 Departure - Departure Time of Disposition: 16:11 Disposition: Home, Self-Care 01 Condition: Fair Clinical Impression: Pain at surgical incision - Discharge Information Referrals: Ramonita Real PA [Primary Care Provider] - Additional Instructions: Use Percocet 5/325 one or 2 tablets every 4 hours as needed for pain, #20 prescribed. This medication is similar to but stronger than Narco and it has always same side effects area it also impairs driving. That could lead to addiction if misused.
[2018-09-15] MEDS ORDERED: HYDROmorphone 1 MG/ML Syringe IM ONE ×2 (16:14→17:00)
[2018-09-15 17:37] VITALS: BP 111/56
== END 2018-09-15 17:38 | disposition home or self-care (01) ==
LOC: JP.ED 15:32
DX: G89.18 Other acute postprocedural pain (principal); F32.9 Major depressive disorder, single episode, unspecified; Z79.899 Other long term (current) drug therapy; Z88.8 Allergy status to other drugs, medicaments and biological substances; Z88.0 Allergy status to penicillin
CPT/HCPCS: 96372; 99283; J1170

== ENCOUNTER 2018-09-18 21:42 | Emergency (ER) | payer MEDICARE, BC ==
[2018-09-18] MEDS ORDERED: HYDROmorphone 0.5 MG/0.5 ML Syringe IM ONE (22:40)
[2018-09-18] MEDS ORDERED: Diazepam 5 MG Tab PO ONE (22:41)
--- NOTE | 2018-09-18 22:45 | EDM.PDOC ---
ED HPI GENERAL MEDICAL PROBLEM - General Chief Complaint: Back Pain or Injury Stated Complaint: BACK PAIN S/P SURGERY 09/13 Time Seen by Provider: 09/18/18 22:42 Source of Information: Reports: Patient History Limitations: Reports: No Limitations - History of Present Illness INITIAL COMMENTS - FREE TEXT/NARRATIVE: Pt arrived with pain in the left arm. This is very severe. She had cervical surgery on Thursday in [facility]. She is presently on a medrol dospak Onset: Gradual, Other ( She has had poor pain control since her surgery. ) Duration: Hour(s): Location: Reports: Neck Associated Symptoms: Reports: No Other Symptoms - Related Data Allergies Allergy/AdvReac Type Severity Reaction Status Date / Time cefoxitin [From Mefoxin] Allergy Severe Anaphylactic Verified 09/18/18 22:25 Shock Penicillins Allergy Severe Anaphylactic Verified 09/18/18 22:25 Shock diphenhydramine AdvReac Anxiety Verified 09/18/18 22:25 [From Benadryl] Home Meds: Home Meds Acetaminophen [Tylenol Extra Strength] 2 tab PO Q6H PRN 01/25/15 [History] Baclofen 1 - 2 tab PO BID 01/25/15 [History] Calcium Carbonate 1,000 mg PO DAILY 01/25/15 [History] Cholecalciferol (Vitamin D3) [Vitamin D3] 5,000 units PO DAILY 01/25/15 [History ] Pregabalin [Lyrica] 150 mg PO BID 01/25/15 [History] Alendronate [Fosamax] 70 mg PO Q7D@0600 03/24/17 [History] Brexpiprazole [Rexulti] 2 mg PO DAILY 03/24/17 [History] Fluticasone Propionate [Flonase] 2 spray NS DAILY 03/24/17 [History] Ibuprofen 600 mg PO Q6H PRN 03/24/17 [History] Ipratropium [Atrovent 0.03% Nasal [place]] 2 spray MOUSTAPHA BID 03/24/17 [History] Lisdexamfetamine [Vyvanse] 70 mg PO DAILY 03/24/17 [History] Loratadine [Claritin] 10 mg PO DAILY 03/24/17 [History] QUEtiapine Fumarate [Seroquel] 0.5 - 2 tab PO BEDTIME PRN 03/24/17 [History] Estradiol 0.75 mg PO DAILY 08/20/17 [History] Glycopyrrolate [Robinul] 1 tab PO BID PRN 09/01/17 [History] buPROPion HCl [Wellbutrin Xl] 300 mg PO DAILY 06/29/18 [History] Cyclobenzaprine [Flexeril] 10 mg PO Q8HR 09/15/18 [History] Hydrocodone/Acetaminophen [Vicodin 5-300 mg Tablet] 2 cap PO Q4HR 09/15/18 [ History] Past Medical History HEENT History: Reports: Allergic Rhinitis, Impaired Vision Respiratory History: Reports: None Gastrointestinal History: Reports: Chronic Constipation Genitourinary History: Reports: Neurogenic Bladder, Urinary Incontinence, UTI, Recurrent [employer] History: Reports: Dysfunctional Uterine Bleeding, Musculoskeletal History: Reports: Back Pain, Chronic, Fracture, Neck Pain, Chronic, Osteoarthritis, Other (See Below) Other Musculoskeletal History: MS, herniated disc Neurological History: Reports: MS Psychiatric History: Reports: Addiction, Depression, Psych Hospitalization(s) Endocrine/Metabolic History: Reports: Osteoporosis Hematologic History: Reports: Blood Transfusion(s) Immunologic History: Reports: None Other Dermatologic History: skin graft - Infectious Disease History Infectious Disease History: Reports: C-Difficile - Past Surgical History Head Surgeries/Procedures: Reports: None HEENT Surgical History: Reports: None GI Surgical History: Reports: Colonoscopy, Other (See Below) Other GI Surgeries/Procedures: I and D following [facility] Female Surgical History: Reports: Section, D&C, Hysterectomy, Salpingo-Oophorectomy Endocrine Surgical History: Reports: None Neurological Surgical History: Reports: None, C-Spine Other Neurological Surgeries/Procedures: herniated dic nec surg 08/2018 Musculoskeletal Surgical History: Reports: Arthroscopic Knee Social & Family History - Family History Family Medical History: Noncontributory - Tobacco Use Smoking Status *Q: Never Smoker - Caffeine Use Caffeine Use: Reports: Coffee ED ROS GENERAL - Review of Systems Review Of Systems: See Below Constitutional: Reports: No Symptoms HEENT: Reports: No Symptoms Respiratory: Reports: No Symptoms Cardiovascular: Reports: No Symptoms Endocrine: Reports: No Symptoms GI/Abdominal: Reports: No Symptoms : Reports: No Symptoms Musculoskeletal: Reports: Other (pt has severe pain going down the left arm and to the left of the incision. Preop she was having alot of radicular pain down the left arm. ) Neurological: Reports: No Symptoms ED EXAM, UPPER BACK/NECK PAIN - Physical Exam Exam: See Below Text/Narrative:: pt arrived with pain in the left arm and to the left of the incision. She had a laminectomy on thursday--cervical Exam Limited By: No Limitations General Appearance: Alert, Moderate Distress Ears Exam: Normal TMs Nose Exam: Normal Inspection Throat/Mouth Exam: Normal Inspection Head Exam: Atraumatic Neck Exam: Other ( the postrrior cervical wound looks good. She is tender in the upper arm. ) Cardiovascular/Respiratory: Regular Rate, Rhythm GI/Abdominal: Soft, Non-Tender Rectal (Female) Exam: Deferred Back Exam: Other ( wound looks good/ ) Extremities: Normal Inspection Course - Vital Signs Last Recorded V/S: Last Vital Signs Temp 35.7 C 09/18/18 22:29 Pulse 77 09/18/18 23:03 Resp 16 09/18/18 23:03 BP 136/63 09/18/18 23:03 Pulse Ox 97 09/18/18 23:03 - Orders/Labs/Meds Meds: Medications Discontinued Medications Generic Name Dose Route Start Last Admin Trade Name Freq PRN Reason Stop Dose Admin Diazepam 5 mg 09/18/18 22:41 09/18/18 22:47 Valium. PO 09/18/18 22:42 5 mg ONETIME ONE Administration Hydromorphone HCl 0.5 mg 09/18/18 22:40 09/18/18 22:47 Dilaudid IM 09/18/18 22:41 0.5 mg ONETIME ONE Administration - Re-Assessments/Exams Free Text/Narrative Re-Assessment/Exam: 09/19/18 00:09 pt was given dilaudid .5 and valium 5 mg. She is feeling considerably better. Departure - Departure Time of Disposition: 00:10 Disposition: Home, Self-Care 01 Condition: Fair Clinical Impression: Cervical post-laminectomy syndrome - Discharge Information Referrals: Ramonita Real PA [Primary Care Provider] - Forms: ED Department Discharge Care Plan Goals: cool pack to the area, increase pain meds to percocet 7.5/325 q4h as needed for pain, Pt needs to see her surgeon. If pain does not decrease she may need to have a MRI of the cervical area.
[2018-09-18 23:04] VITALS: BP 136/63
== END 2018-09-19 00:32 | disposition home or self-care (01) ==
LOC: JP.ED 21:42
DX: M96.1 Postlaminectomy syndrome, not elsewhere classified (principal); M54.2 Cervicalgia; F32.9 Major depressive disorder, single episode, unspecified; Z79.899 Other long term (current) drug therapy; Z88.1 Allergy status to other antibiotic agents; Z88.0 Allergy status to penicillin; Z88.8 Allergy status to other drugs, medicaments and biological substances
CPT/HCPCS: 96372; 99283; A9270; J1170

== ENCOUNTER 2019-08-22 17:41 | Emergency (ER) | payer MEDICARE, BC ==
[2019-08-22 18:02] VITALS: BP 125/57; PULSE 87
--- NOTE | 2019-08-22 18:37 | EDM.PDOC ---
ED HPI GENERAL MEDICAL PROBLEM - General Chief Complaint: Neurological Problem Stated Complaint: L SIDE WEAKNESS NUMB LIP SPEECH Time Seen by Provider: 08/22/19 18:21 Source of Information: Reports: Patient, Family, RN Notes Reviewed History Limitations: Reports: No Limitations - History of Present Illness INITIAL COMMENTS - FREE TEXT/NARRATIVE: 53-year-old female presents to the emergency department with a complaint of left -sided weakness, she has known history of multiple sclerosis has been controlled for several years last MRI in May showed no significant change does have a known history of left-sided weakness. However I woke up today at 4: 00 and noticed increased numbness and tingling on the left side. She is unsure of her last known well time. Did have a consultation with her neurologist last week for concerned about changes on her left side had recommended Solu-Medrol dosing, however she has not followed through with this recommendation. Denies any nausea vomiting shortness of breath or chest pain no change in vision - Related Data Allergies Allergy/AdvReac Type Severity Reaction Status Date / Time cefoxitin [From Mefoxin] Allergy Severe Anaphylactic Verified 09/18/18 22:25 Shock Penicillins Allergy Severe Anaphylactic Verified 09/18/18 22:25 Shock diphenhydramine AdvReac Anxiety Verified 09/18/18 22:25 [From Benadryl] Home Meds: Home Meds Acetaminophen [Tylenol Extra Strength] 2 tab PO Q6H PRN 01/25/15 [History] Baclofen 1 - 2 tab PO BID 01/25/15 [History] Calcium Carbonate 1,000 mg PO DAILY 01/25/15 [History] Cholecalciferol (Vitamin D3) [Vitamin D3] 5,000 units PO DAILY 01/25/15 [History ] Pregabalin [Lyrica] 150 mg PO BID 01/25/15 [History] Alendronate [Fosamax] 70 mg PO Q7D@0600 03/24/17 [History] Brexpiprazole [Rexulti] 2 mg PO DAILY 03/24/17 [History] Fluticasone Propionate [Flonase] 2 spray NS DAILY 03/24/17 [History] Ibuprofen 600 mg PO Q6H PRN 03/24/17 [History] Ipratropium [Atrovent 0.03% Nasal [place]] 2 spray MOUSTAPHA BID 03/24/17 [History] Lisdexamfetamine [Vyvanse] 70 mg PO DAILY 03/24/17 [History] Loratadine [Claritin] 10 mg PO DAILY 03/24/17 [History] QUEtiapine Fumarate [Seroquel] 0.5 - 2 tab PO BEDTIME PRN 03/24/17 [History] estradioL [Estradiol] 0.75 mg PO DAILY 08/20/17 [History] Glycopyrrolate [Robinul] 1 tab PO BID PRN 09/01/17 [History] buPROPion HCl [Wellbutrin Xl] 300 mg PO DAILY 06/29/18 [History] Cyclobenzaprine [Flexeril] 10 mg PO Q8HR 09/15/18 [History] Hydrocodone/Acetaminophen [Vicodin 5-300 mg Tablet] 2 cap PO Q4HR 09/15/18 [ History] Past Medical History HEENT History: Reports: Allergic Rhinitis, Impaired Vision Gastrointestinal History: Reports: Chronic Constipation Genitourinary History: Reports: Neurogenic Bladder, Urinary Incontinence, UTI, 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 Bleeding, Musculoskeletal History: Reports: Back Pain, Chronic, Fracture, Neck Pain, Chronic, Osteoarthritis, Other (See Below) Other Musculoskeletal History: MS, herniated disc Neurological History: Reports: MS Psychiatric History: Reports: Addiction, Depression, Psych Hospitalization(s) Endocrine/Metabolic History: Reports: Osteoporosis Hematologic History: Reports: Blood Transfusion(s) Immunologic History: Reports: None Other Dermatologic History: skin graft - Infectious Disease History Infectious Disease History: Reports: C-Difficile - Past Surgical History Head Surgeries/Procedures: Reports: None HEENT Surgical History: Reports: None GI Surgical History: Reports: Colonoscopy, Other (See Below) Other GI Surgeries/Procedures: I and D following [facility] Female Surgical History: Reports: Section, D&C, Hysterectomy, Salpingo-Oophorectomy Endocrine Surgical History: Reports: None Neurological Surgical History: Reports: None, C-Spine Other Neurological Surgeries/Procedures: herniated dic nec surg 08/2018 Musculoskeletal Surgical History: Reports: Arthroscopic Knee Social & Family History - Family History Family Medical History: Noncontributory - Tobacco Use Smoking Status *Q: Never Smoker - Caffeine Use Caffeine Use: Reports: Coffee - Recreational Drug Use Recreational Drug Use: No ED ROS GENERAL - Review of Systems Review Of Systems: See Below Constitutional: Reports: No Symptoms HEENT: Reports: No Symptoms Respiratory: Reports: No Symptoms Cardiovascular: Reports: No Symptoms GI/Abdominal: Reports: No Symptoms : Reports: No Symptoms Musculoskeletal: Reports: No Symptoms Skin: Reports: No Symptoms Neurological: Reports: Numbness, Tingling, Weakness ED EXAM, NEURO - Physical Exam Exam: See Below Text/Narrative:: General: Female, not in any distress, GCS 15, alert and oriented x3 HEENT: head is atraumatic normocephalic, eyes pupils equal round reactive to light, sclera clear no conjunctivitis appreciated, extraocular eye movements intact. Nose no septal deviation, nares are clear, no blood present. Mouth mucosa is moist and pink no erythema or exudate noted in soft palate, tongue is midline uvula is midline, dentition is intact. Neck: Supple no thyromegaly no tracheal deviation. Nodes: Cervical nodes subclavicular nodes nontender no palpable lymphadenopathy noted. Lungs: clear to auscultation bilaterally with symmetrical respirations, no adventitious noise appreciated. CV: Regular rate and rhythm S1 and S2 appreciated no murmurs rubs or gallops noted. Abdomen: Soft, nontender, no palpable masses or organomegaly appreciated, no distention no guarding bowel sounds are present, [scars ]. Neuro: Cranial nerves II test with pupillary light reflex 4 mm to 2 mm bilaterally, CN III test pupillary constriction, lid elevation and eye abduction bilaterally, CN IV downward movement of eyes bilaterally, CN V good jaw movement, CN lateral deviation of the eyes bilaterally to finger movement , CN VII symmetrical smile shows teeth without difficulty, CN VIII pass finger rub to ears bilaterally, CN IX adequate voice and tone, CN X adequate voice and tone no difficulty swallowing, CN XI can shrug shoulders without difficulty, CN XII can stick tongue out without difficulty, cranial nerves II to XII intact as tested, power is 5 x 5 on the right however power is decreased on the left side upper and lower extremity 4 out of 5, sensation is intact Skin: Warm and dry, intact Extremities: No lower extremity edema appreciated, Course - Vital Signs Last Recorded V/S: Last Vital Signs Temp 95.8 F L 08/22/19 18: Pulse 87 08/22/19 18:03 Resp 19 08/22/19 18: BP 125/57 L 08/22/19 18:03 Pulse Ox 98 08/22/19 18:03 - Orders/Labs/Meds Orders: Active Orders 24 hr Category Date Time Status EKG Documentation Completion [RC] ASDIRECTED Care 08/22/19 18:32 Active Peripheral IV Care [RC] . DIRECTED Care 08/22/19 20:11 Active Sodium Chloride 0.9% [Saline Flush] Med 08/22/19 20:10 Active 10 ml FLUSH ASDIRECTED PRN Peripheral IV Insertion Adult [OM.PC] Urgent Oth 08/22/19 20:10 Ordered EKG 12 Lead [EK] Stat Ther 08/22/19 18:32 Ordered Medication Orders Sodium Chloride (Saline Flush) 10 ml FLUSH ASDIRECTED PRN PRN Reason: Keep Vein Open Last Admin: 08/22/19 20:33 Dose: 10 ml Labs: Laboratory Tests 08/22/19 08/22/19 08/22/19 Range/Units 18:43 18:43 18:43 WBC 5.7 (4.5-11.0) K/uL RBC 4.13 (3.30-5.50) M/uL Hgb 12.6 (12.0-15.0) g/dL Hct 39.6 (36.0-48.0) % MCV 96 (80-98) fL MCH 31 (27-31) pg MCHC 32 (32-36) % Plt Count 408 H (150-400) K/uL Neut % (Auto) 64 (36-66) % Lymph % (Auto) 23 L (24-44) % [place] % (Auto) 11 H (2-6) % Eos % (Auto) 2 (2-4) % Baso % (Auto) 1 (0-1) % PT 10.3 (9.5-12.0) sec INR 0.95 (0.80-1.20) APTT 24.6 L (27.0-36.0) sec Sodium 145 (140-148) mmol/L Potassium 4.1 (3.6-5.2) mmol/L Chloride 108 (100-108) mmol/L Carbon Dioxide 27 (21-32) mmol/L Anion Gap 10.2 (5.0-14.0) mmol/L BUN 14 (7-18) mg/dL Creatinine 1.0 (0.6-1.0) mg/dL Est Cr Clr Drug Dosing 63.27 mL/min Estimated GFR (MDRD) 58 L (>60) Glucose 95 (74-106) mg/dL Lactic Acid (0.4-2.0) mmol/L Calcium 8.2 L (8.5-10.1) mg/dL Total Bilirubin 0.3 (0.2-1.0) mg/dL AST 13 L (15-37) U/L ALT 24 (12-78) U/L Alkaline Phosphatase 66 (46-116) U/L Total Protein 6.6 (6.4-8.2) g/dL Albumin 3.4 (3.4-5.0) g/dL Globulin 3.2 (2.3-3.5) g/dL Albumin/Globulin Ratio 1.1 L (1.2-2.2) 08/22/19 Range/Units 18:43 WBC (4.5-11.0) K/uL RBC (3.30-5.50) M/uL Hgb (12.0-15.0) g/dL Hct (36.0-48.0) % MCV (80-98) fL MCH (27-31) pg MCHC (32-36) % Plt Count (150-400) K/uL Neut % (Auto) (36-66) % Lymph % (Auto) (24-44) % [place] % (Auto) (2-6) % Eos % (Auto) (2-4) % Baso % (Auto) (0-1) % PT (9.5-12.0) sec INR (0.80-1.20) APTT (27.0-36.0) sec Sodium (140-148) mmol/L Potassium (3.6-5.2) mmol/L Chloride (100-108) mmol/L Carbon Dioxide (21-32) mmol/L Anion Gap (5.0-14.0) mmol/L BUN (7-18) mg/dL Creatinine (0.6-1.0) mg/dL Est Cr Clr Drug Dosing mL/min Estimated GFR (MDRD) (>60) Glucose (74-106) mg/dL Lactic Acid 1.8 (0.4-2.0) mmol/L Calcium (8.5-10.1) mg/dL Total Bilirubin (0.2-1.0) mg/dL AST (15-37) U/L ALT (12-78) U/L Alkaline Phosphatase (46-116) U/L Total Protein (6.4-8.2) g/dL Albumin (3.4-5.0) g/dL Globulin (2.3-3.5) g/dL Albumin/Globulin Ratio (1.2-2.2) Meds: Medications Generic Name Dose Route Start Last Admin Trade Name Freq PRN Reason Stop Dose Admin Sodium Chloride 10 ml 08/22/19 20:10 08/22/19 20:33 Saline Flush FLUSH 10 ml ASDIRECTED PRN Administration Keep Vein Open Discontinued Medications Generic Name Dose Route Start Last Admin Trade Name Freq PRN Reason Stop Dose Admin Methylprednisolone Sodium 116 mls @ 200 mls/hr 08/22/19 20:10 08/22/19 20:19 Succinate 1,000 mg/ Dextrose/ IV 08/22/19 20:41 200 mls/hr Water ONETIME ONE Administration - Re-Assessments/Exams Free Text/Narrative Re-Assessment/Exam: 08/22/19 20:11 Called and discussed case with Dr. Rose neurologist on-call at [facility] at 2004 recommended continuing the Solu-Medrol that was ordered last week 1 dose now 1 g IV then follow-up with her neurologist in the morning Departure - Departure Time of Disposition: 21:11 Disposition: Home, Self-Care 01 Condition: Fair Clinical Impression: Left-sided weakness - Discharge Information Instructions: Weakness, [id number] Referrals: Ramonita Real PA [Primary Care Provider] - Forms: ED Department Discharge Additional Instructions: Please contact your neurology office in the morning for further evaluation and treatment Sepsis Event Note - Evaluation Sepsis Screening Result: No Definite Risk - Focused Exam Vital Signs: Vital Signs Temp Pulse Resp BP Pulse Ox 08/22/19 18:03 95.8 F L 87 19 125/57 L 98 08/22/19 17:59 95.8 F L 87 19 125/57 L 98 Date Exam was Performed: 08/22/19 Time Exam was Performed: 21:11 - My Orders Last 24 Hours: My Active Orders 08/22/19 18:32 EKG Documentation Completion [RC] ASDIRECTED EKG 12 Lead [EK] Stat 08/22/19 20:10 Sodium Chloride 0.9% [Saline Flush] 10 ml FLUSH ASDIRECTED PRN Peripheral IV Insertion Adult [OM.PC] Urgent 08/22/19 20:11 Peripheral IV Care [RC] . DIRECTED - Assessment/Plan Last 24 Hours: My Active Orders 08/22/19 18:32 EKG Documentation Completion [RC] ASDIRECTED EKG 12 Lead [EK] Stat 08/22/19 20:10 Sodium Chloride 0.9% [Saline Flush] 10 ml FLUSH ASDIRECTED PRN Peripheral IV Insertion Adult [OM.PC] Urgent 08/22/19 20:11 Peripheral IV Care [RC] . DIRECTED Plan: Assessment Acuity = acute Site and laterality = left-sided weakness complicated patient with known history of multiple sclerosis Etiology = unknown Manifestations = none Location of injury = Home Lab values = CBC, CMP, EKG within normal limits CT scan shows no acute process Plan After discussion with neurology from [facility] provide 1 g Solu-Medrol IV she will contact her neurology office in the morning for further evaluation and treatment This note was dictated using [employer] voice recognition software please call with any questions on syntax or grammar.
--- NOTE | 2019-08-22 19:12 | CRLCT ---
INDICATION: hx MS increased weakness in left side CT HEAD WITHOUT CONTRAST TECHNIQUE: Multiple axial CT images were performed through the head without intravenous contrast administration. COMPARISON: 01/25/[address] FINDINGS: No acute intracranial hemorrhage is identified. No extra-axial collections are evident and there is no mass effect or midline shift. Ventricles are normal in size and configuration. Brain parenchyma appears normal with unremarkable guerin-white differentiation. Osseous structures are within normal limits and no fractures are seen. Included portions of the paranasal sinuses and mastoid air cells are normally aerated. IMPRESSION: Normal non-contrast head CT. Report called to Officer at 7:03pm 08/22/2019. RONDA VELAZQUEZ MD [employer] Dictated by: Fausto Velazquez MD @ 08/22/2019 19:10:55 (Electronically Signed)
[2019-08-22] MEDS ORDERED: methylPREDNISolone Sod Succ 1,000 MG in Dextrose 5% in Water 100 ML IV ONE ×2 (20:10)
[2019-08-22] MEDS ORDERED: Sodium Chloride 0.9% 10 ML Syringe FLUSH PRN (20:10)
== END 2019-08-22 21:26 | disposition home or self-care (01) ==
LOC: JP.ED 17:41
DX: M62.81 Muscle weakness (generalized) (principal); M19.90 Unspecified osteoarthritis, unspecified site; F32.9 Major depressive disorder, single episode, unspecified; Z88.8 Allergy status to other drugs, medicaments and biological substances; Z88.0 Allergy status to penicillin; Z79.899 Other long term (current) drug therapy
CPT/HCPCS: 36415; 70450; 80053; 83605; 85025; 85610; 85730; 93005; 96365; 99284; 99285; J2930; J7060; 93010

== ENCOUNTER 2022-03-28 08:32 | Day surgery (SDC) | payer MEDICARE, BC ==
[2022-03-28] MEDS ORDERED: Sodium Chloride 0.9% 1,000 ML IV SCH (09:15)
[2022-03-28] MEDS ORDERED: Propofol 200 MG/20 ML SDV ONE (09:27)
[2022-03-28] MEDS ORDERED: fentaNYL 100 MCG/2 ML SDV ONE (09:27)
[2022-03-28] MEDS ORDERED: Midazolam 1 MG/ML 2 ML SDV ONE (09:27)
[2022-03-28 10:48] VITALS: BP 152/72; PULSE 71
== END 2022-03-28 11:00 | disposition home or self-care (01) ==
LOC: JP.SDS 08:32
PROVIDERS: ATTEND Surgery
DX: K29.70 Gastritis, unspecified, without bleeding (principal); K21.9 Gastro-esophageal reflux disease without esophagitis; I05.0 Rheumatic mitral stenosis; Z88.0 Allergy status to penicillin; Z88.8 Allergy status to other drugs, medicaments and biological substances; Z79.899 Other long term (current) drug therapy
CPT/HCPCS: 43239; 88305; J2250; J2704; J3010; J7030

== ENCOUNTER 2022-05-16 20:29 | Emergency (ER) | payer MEDICARE, BC ==
[2022-05-16 20:50] VITALS: BP 156/81; PULSE 105
[2022-05-16] MEDS ORDERED: Sodium Chloride 0.9% 10 ML Syringe FLUSH PRN (21:12)
[2022-05-16] MEDS ORDERED: Ondansetron 4 MG/2 ML SDV IVPUSH ONE (21:12)
[2022-05-16] MEDS ORDERED: Sodium Chloride 0.9% 1,000 ML IV SCH (21:15)
== END 2022-05-16 23:43 | disposition home or self-care (01) ==
LOC: JP.ED 20:29
DX: R11.2 Nausea with vomiting, unspecified (principal); Z86.16 Personal history of COVID-19; Z88.0 Allergy status to penicillin; Z88.8 Allergy status to other drugs, medicaments and biological substances; Z88.1 Allergy status to other antibiotic agents
CPT/HCPCS: 96361; 96374; 99283; J2405; J3490; J7030

== ENCOUNTER 2022-06-29 13:49 | Emergency (ER) | payer MEDICARE, BC ==
[2022-06-29] MEDS ORDERED: Aspirin 81 MG Tab.Chew PO ONE (14:03)
[2022-06-29 14:18] VITALS: BP 125/56; PULSE 86
[2022-06-29 14:35] LABS: TROPONIN I HIGH SENSITIVITY 4.8 pg/mL (<=60.3)
== END 2022-06-29 16:55 | disposition home or self-care (01) ==
LOC: JP.ED 13:49
DX: R07.89 Other chest pain (principal); Z88.8 Allergy status to other drugs, medicaments and biological substances; Z88.0 Allergy status to penicillin; Z88.1 Allergy status to other antibiotic agents; Z86.16 Personal history of COVID-19
CPT/HCPCS: 36415; 80048; 84484; 85025; 85610; 85730; 93005; 99285; A9270

== ENCOUNTER 2022-07-23 06:09 | Day surgery (SDC) | payer MEDICARE, BC ==
[2022-07-23] MEDS ORDERED: Lactated Ringers 1,000 ML IV SCH (06:50)
[2022-07-23] MEDS ORDERED: fentaNYL 50 MCG/ML SDV ONE (07:26)
[2022-07-23] MEDS ORDERED: Propofol 200 MG/20 ML SDV ONE ×2 (07:26→07:48)
[2022-07-23] MEDS ORDERED: Midazolam 1 MG/ML 2 ML SDV ONE (07:55)
[2022-07-23 09:03] VITALS: BP 131/63; PULSE 55
== END 2022-07-23 09:15 | disposition home or self-care (01) ==
LOC: JP.SDS 06:09
PROVIDERS: ATTEND Student in an Organized Health Care Education/Training Program
DX: K21.00 Gastro-esophageal reflux disease with esophagitis, without bleeding (principal); K29.50 Unspecified chronic gastritis without bleeding; K22.70 Barrett's esophagus without dysplasia; K31.4 Gastric diverticulum; K44.9 Diaphragmatic hernia without obstruction or gangrene; K31.7 Polyp of stomach and duodenum; F32.A Depression, unspecified; Z88.0 Allergy status to penicillin; Z88.8 Allergy status to other drugs, medicaments and biological substances; Z88.1 Allergy status to other antibiotic agents; Z79.899 Other long term (current) drug therapy
CPT/HCPCS: 43239; 88305; J2250; J2704; J3010; J7120

== ENCOUNTER 2022-11-24 15:25 | Emergency (ER) | payer MEDICARE, BC ==
[2022-11-24 15:46] VITALS: BP 127/44; PULSE 66
[2022-11-24 16:07] LABS: BASOPHILS ABSOLUTE AUTO 0.07 K/uL (0.00-0.10); BASOPHILS PERCENT AUTO 1.3 % (0.1-1.3); EOSINOPHILS ABSOLUTE AUTO 0.09 K/uL (0.00-0.40); EOSINOPHILS PERCENT AUTO 1.6 % (0.0-5.4); HEMOGLOBIN 14.2 g/dL (11.2-15.5); IMMATURE GRAN ABSOLUTE AUTO 0.03 K/uL (0.00-0.23); IMMATURE GRAN PERCENT AUTO 0.5 % (0.0-0.7); LYMPHOCYTES ABSOLUTE AUTO 1.53 K/uL (0.8-3.3); LYMPHOCYTES PERCENT AUTO 27.6 % (11.4-47.7); MEAN CORPUSCULAR HEMOGLOBIN 31.3 pg (31.6-35.5); MEAN CORPUSCULAR HGB CONC 33.8 g/dL (31.6-35.5); MEAN CORPUSCULAR VOLUME 92.5 fL (81.4-99.0); MONOCYTES ABSOLUTE AUTO 0.54 K/uL (0.20-0.90); MONOCYTES PERCENT AUTO 9.7 % (3.3-12.6); NEUTROPHILS ABSOLUTE AUTO 3.29 K/uL (1.0-7.6); NEUTROPHILS PERCENT AUTO 59.3 % (40.0-78.1); PLATELET COUNT,PLT 363 K/uL (130-375); RED BLOOD CELL COUNT 4.54 M/uL (3.77-5.24); WHITE BLOOD CELL COUNT,WBC 5.6 K/uL (3.2-11.0)
[2022-11-24 16:29] LABS: A/G RATIO 1.1 (1.2-2.2); ALANINE AMINOTRANSFERASE,ALT 32 U/L (12-78); ALBUMIN 3.6 g/dL (3.4-5.0); ALKALINE PHOSPHATASE 92 U/L (46-116); ASPARTATE AMNIOTRANSFERASE,AST 21 U/L (15-37); BILIRUBIN TOTAL 0.6 mg/dL (0.2-1.0); BLOOD UREA NITROGEN,BUN 16 mg/dL (7-18); CALCIUM 8.7 mg/dL (8.5-10.1); CARBON DIOXIDE,CO2 26 mmol/L (21-32); CHLORIDE,CL 103 mmol/L (100-108); EST CRCL DRUG DOSING (CG) 61.09 mL/min; ESTIMATED GFR 66 mL/min (>60); GLUCOSE RANDOM 125 mg/dL (74-106); POTASSIUM,K 3.5 mmol/L (3.6-5.2); SODIUM,NA 138 mmol/L (140-148)
[2022-11-24 16:40] LABS: ANION GAP 12.5 mmol/L (5.0-14.0)
[2022-11-24] MEDS ORDERED: Ketorolac 30 MG/ML SDV IM ONE (17:11)
[2022-11-24] MEDS ORDERED: Acetaminophen/oxyCODONE 325-7.5 MG Tab PO ONE (17:24)
[2022-11-24] MEDS ORDERED: carBAMazepine 200 MG Tab PO ONE (17:39)
== END 2022-11-24 18:26 | disposition home or self-care (01) ==
LOC: JP.ED 15:25
DX: M62.838 Other muscle spasm (principal); G35 Multiple sclerosis; E87.6 Hypokalemia; Z86.16 Personal history of COVID-19; Z98.890 Other specified postprocedural states; Z88.8 Allergy status to other drugs, medicaments and biological substances; Z91.048 Other nonmedicinal substance allergy status; Z88.0 Allergy status to penicillin; Z88.1 Allergy status to other antibiotic agents; Z79.899 Other long term (current) drug therapy
CPT/HCPCS: 36415; 80053; 83735; 85025; 96372; 99283; A9270; J1885

== ENCOUNTER 2023-01-05 11:28 | Emergency (ER) | payer MEDICARE, BC ==
[2023-01-05 11:37] VITALS: BP 129/73; PULSE 71
[2023-01-05] MEDS ORDERED: Sodium Chloride 0.9% 10 ML Syringe FLUSH PRN (11:51)
[2023-01-05] MEDS ORDERED: Aspirin 81 MG Tab.Chew PO ONE (11:52)
[2023-01-05 12:00] LABS: BASOPHILS ABSOLUTE AUTO 0.06 K/uL (0.00-0.10); BASOPHILS PERCENT AUTO 1.4 % (0.1-1.3); EOSINOPHILS ABSOLUTE AUTO 0.04 K/uL (0.00-0.40); HEMATOCRIT 42.4 % (34.3-46.0); HEMOGLOBIN 14.3 g/dL (11.2-15.5); IMMATURE GRAN PERCENT AUTO 0.2 % (0.0-0.7); LYMPHOCYTES ABSOLUTE AUTO 1.34 K/uL (0.8-3.3); LYMPHOCYTES PERCENT AUTO 32.2 % (11.4-47.7); MEAN CORPUSCULAR HEMOGLOBIN 31.4 pg (31.6-35.5); MEAN CORPUSCULAR HGB CONC 33.7 g/dL (31.6-35.5); MONOCYTES ABSOLUTE AUTO 0.39 K/uL (0.20-0.90); MONOCYTES PERCENT AUTO 9.4 % (3.3-12.6); NEUTROPHILS ABSOLUTE AUTO 2.32 K/uL (1.0-7.6); NEUTROPHILS PERCENT AUTO 55.8 % (40.0-78.1); PLATELET COUNT,PLT 395 K/uL (130-375); RED BLOOD CELL COUNT 4.56 M/uL (3.77-5.24); WHITE BLOOD CELL COUNT,WBC 4.2 K/uL (3.2-11.0)
[2023-01-05 12:02] LABS: IMMATURE GRAN ABSOLUTE AUTO 0.01 K/uL (0.00-0.23)
[2023-01-05] MEDS ORDERED: Sodium Chloride 0.9% 500 ML IV ONE (12:10)
[2023-01-05 12:26] LABS: CALCIUM 9.5 mg/dL (8.5-10.1); CREATININE 1.2 mg/dL (0.6-1.0); EST CRCL DRUG DOSING (CG) 50.3 mL/min; POTASSIUM,K 4.2 mmol/L (3.6-5.2); TROPONIN I HIGH SENSITIVITY 4.7 pg/mL (<=60.3)
[2023-01-05 12:27] LABS: ANION GAP 9.2 mmol/L (5.0-14.0)
[2023-01-05 13:22] LABS: APPEARANCE,URINE CLEAR (CLEAR); BILIRUBIN,URINE NEGATIVE (NEGATIVE); COLOR,URINE YELLOW (YELLOW); GLUCOSE,URINE NEGATIVE (NEGATIVE); KETONES,URINE NEGATIVE (NEGATIVE); LEUKOCYTE ESTERASE,URINE SMALL (NEGATIVE); NITRITE,URINE NEGATIVE (NEGATIVE); OCCULT BLOOD,URINE NEGATIVE (NEGATIVE); PROTEIN,URINE NEGATIVE (NEGATIVE); UROBILINOGEN,URINE 0.2 EU/dL (0.2-1.0)
[2023-01-05 13:44] LABS: AMORPHOUS SEDIMENT,URINE NOT SEEN; BACTERIA,URINE FEW; EPITHELIAL CELLS,URINE NOT SEEN; MUCUS,URINE NOT SEEN; RBC,URINE 0-5 (0-5)
== END 2023-01-05 14:30 | disposition home or self-care (01) ==
LOC: JP.ED 11:28
DX: R07.89 Other chest pain (principal); Z88.0 Allergy status to penicillin; Z88.8 Allergy status to other drugs, medicaments and biological substances
CPT/HCPCS: 36415; 80048; 81001; 83735; 84484; 85025; 85379; 87086; 93005; 99285; A9270; J3490; J7040

== ENCOUNTER 2023-01-25 00:58 | Emergency (ER) | payer MEDICARE, BC ==
[2023-01-25 01:04] VITALS: BP 135/57; PULSE 79
[2023-01-25] MEDS ORDERED: Sodium Chloride 0.9% 1,000 ML IV ONE (01:45)
[2023-01-25 01:56] LABS: BASOPHILS ABSOLUTE AUTO 0.06 K/uL (0.00-0.10); BASOPHILS PERCENT AUTO 0.8 % (0.1-1.3); EOSINOPHILS ABSOLUTE AUTO 0.08 K/uL (0.00-0.40); EOSINOPHILS PERCENT AUTO 1.1 % (0.0-5.4); HEMATOCRIT 40.5 % (34.3-46.0); HEMOGLOBIN 13.6 g/dL (11.2-15.5); IMMATURE GRAN ABSOLUTE AUTO 0.03 K/uL (0.00-0.23); IMMATURE GRAN PERCENT AUTO 0.4 % (0.0-0.7); LYMPHOCYTES ABSOLUTE AUTO 1.37 K/uL (0.8-3.3); LYMPHOCYTES PERCENT AUTO 18.3 % (11.4-47.7); MEAN CORPUSCULAR HEMOGLOBIN 31.6 pg (31.6-35.5); MEAN CORPUSCULAR HGB CONC 33.6 g/dL (31.6-35.5); MONOCYTES ABSOLUTE AUTO 0.77 K/uL (0.20-0.90); MONOCYTES PERCENT AUTO 10.3 % (3.3-12.6); NEUTROPHILS ABSOLUTE AUTO 5.18 K/uL (1.0-7.6); NEUTROPHILS PERCENT AUTO 69.1 % (40.0-78.1); PLATELET COUNT,PLT 349 K/uL (130-375); RED BLOOD CELL COUNT 4.31 M/uL (3.77-5.24); WHITE BLOOD CELL COUNT,WBC 7.5 K/uL (3.2-11.0)
[2023-01-25 02:20] LABS: A/G RATIO 1.2 (1.2-2.2); ALANINE AMINOTRANSFERASE,ALT 31 U/L (12-78); ALBUMIN 3.7 g/dL (3.4-5.0); ALKALINE PHOSPHATASE 90 U/L (46-116); ANION GAP 7.7 mmol/L (5.0-14.0); ASPARTATE AMNIOTRANSFERASE,AST 21 U/L (15-37); BILIRUBIN TOTAL 0.5 mg/dL (0.2-1.0); BLOOD UREA NITROGEN,BUN 11 mg/dL (7-18); CALCIUM 9.3 mg/dL (8.5-10.1); CARBON DIOXIDE,CO2 30 mmol/L (21-32); CHLORIDE,CL 104 mmol/L (100-108); CREATININE 1.3 mg/dL (0.6-1.0); EST CRCL DRUG DOSING (CG) 46.43 mL/min; ESTIMATED GFR 48 mL/min (>60); GLUCOSE RANDOM 108 mg/dL (74-106); POTASSIUM,K 4.8 mmol/L (3.6-5.2); PROTEIN TOTAL,TP 6.9 g/dL (6.4-8.2); SODIUM,NA 142 mmol/L (140-148); TROPONIN I HIGH SENSITIVITY 7.4 pg/mL (<=60.3)
== END 2023-01-25 03:25 | disposition home or self-care (01) ==
LOC: JP.ED 00:58
DX: E86.0 Dehydration (principal); R07.89 Other chest pain; R11.0 Nausea; Z88.0 Allergy status to penicillin; Z88.1 Allergy status to other antibiotic agents; Z88.8 Allergy status to other drugs, medicaments and biological substances; Z91.048 Other nonmedicinal substance allergy status; Z79.899 Other long term (current) drug therapy; Z86.16 Personal history of COVID-19; Z90.710 Acquired absence of both cervix and uterus
CPT/HCPCS: 36415; 80053; 84484; 85025; 93005; 96360; 99285; J7030

== ENCOUNTER 2023-11-11 05:55 | Emergency (ER) | payer MEDICARE, BC ==
[2023-11-11 07:14] LABS: BASOPHILS ABSOLUTE AUTO 0.07 K/uL (0.00-0.10); BASOPHILS PERCENT AUTO 1.2 % (0.1-1.3); EOSINOPHILS PERCENT AUTO 0.3 % (0.0-5.4); HEMATOCRIT 42.6 % (34.3-46.0); HEMOGLOBIN 14.6 g/dL (11.2-15.5); IMMATURE GRAN PERCENT AUTO 0.3 % (0.0-0.7); LYMPHOCYTES ABSOLUTE AUTO 1.61 K/uL (0.8-3.3); LYMPHOCYTES PERCENT AUTO 27.5 % (11.4-47.7); MEAN CORPUSCULAR HEMOGLOBIN 31.1 pg (31.6-35.5); MEAN CORPUSCULAR HGB CONC 34.3 g/dL (31.6-35.5); MEAN CORPUSCULAR VOLUME 90.6 fL (81.4-99.0); MONOCYTES ABSOLUTE AUTO 0.46 K/uL (0.20-0.90); MONOCYTES PERCENT AUTO 7.9 % (3.3-12.6); NEUTROPHILS ABSOLUTE AUTO 3.67 K/uL (1.0-7.6); NEUTROPHILS PERCENT AUTO 62.8 % (40.0-78.1); PLATELET COUNT,PLT 476 K/uL (130-375); WHITE BLOOD CELL COUNT,WBC 5.9 K/uL (3.2-11.0)
[2023-11-11 07:15] LABS: EOSINOPHILS ABSOLUTE AUTO 0.02 K/uL (0.00-0.40); IMMATURE GRAN ABSOLUTE AUTO 0.02 K/uL (0.00-0.23)
[2023-11-11 07:24] LABS: ALANINE AMINOTRANSFERASE,ALT 31 U/L (12-78); ALBUMIN 3.7 g/dL (3.4-5.0); ALKALINE PHOSPHATASE 97 U/L (46-116); ASPARTATE AMNIOTRANSFERASE,AST 18 U/L (15-37); BILIRUBIN TOTAL 0.6 mg/dL (0.2-1.0); BLOOD UREA NITROGEN,BUN 14 mg/dL (7-18); CALCIUM 9.5 mg/dL (8.5-10.1); CARBON DIOXIDE,CO2 27 mmol/L (21-32); CHLORIDE,CL 103 mmol/L (100-108); CREATININE 1.2 mg/dL (0.6-1.0); ESTIMATED GFR 53 mL/min (>60); GLUCOSE RANDOM 140 mg/dL (74-106); POTASSIUM,K 3.9 mmol/L (3.6-5.2); PROTEIN TOTAL,TP 7.4 g/dL (6.4-8.2); SODIUM,NA 142 mmol/L (140-148)
[2023-11-11] MEDS: Sodium Chloride 0.9% 1,000 ML IV ONE (07:34)
[2023-11-11] MEDS: Ketorolac 30 MG/ML SDV IVPUSH ONE (08:14)
[2023-11-11 08:43] LABS: APPEARANCE,URINE SLIGHTLY CLOUDY (CLEAR); BILIRUBIN,URINE NEGATIVE (NEGATIVE); COLOR,URINE YELLOW (YELLOW); GLUCOSE,URINE NEGATIVE (NEGATIVE); KETONES,URINE NEGATIVE (NEGATIVE); LEUKOCYTE ESTERASE,URINE LARGE (NEGATIVE); NITRITE,URINE NEGATIVE (NEGATIVE); OCCULT BLOOD,URINE TRACE-INTACT (NEGATIVE); PROTEIN,URINE NEGATIVE (NEGATIVE); UROBILINOGEN,URINE 0.2 EU/dL (0.2-1.0)
[2023-11-11 08:59] LABS: AMORPHOUS SEDIMENT,URINE MODERATE; BACTERIA,URINE MANY; EPITHELIAL CELLS,URINE FEW; MUCUS,URINE NOT SEEN; RBC,URINE 0-5 (0-5); WBC,URINE 20-30 (0-5)
[2023-11-11 09:31] VITALS: PULSE 63
[2023-11-11] MEDS: Nitrofurantoin Monohydrate/Macrocrystalline 100 MG Cap PO ONE (09:31)
[2023-11-11 09:32] VITALS: BP 149/68
== END 2023-11-11 10:02 | disposition home or self-care (01) ==
LOC: JP.ED 05:55 → MERGE 05:55 → JP.ED 10:02
DX: R53.1 Weakness (principal); N39.0 Urinary tract infection, site not specified; Z88.1 Allergy status to other antibiotic agents; Z88.8 Allergy status to other drugs, medicaments and biological substances; Z79.899 Other long term (current) drug therapy; Z90.49 Acquired absence of other specified parts of digestive tract
CPT/HCPCS: 36415; 70450; 80053; 81001; 85025; 93005; 96361; 96374; 99284; A9270; J1885; J7030